=== PATIENT | male | born 1945 | race Caucasian/White ===

== ENCOUNTER 2016-07-26 11:43 | Emergency (ER) | payer BC, MEDICARE ==
[~2016-07-26] VITALS: Ht 170.2 cm; Wt 70.3 kg
[~2016-07-26 11:43] MED LIST: /MELO7TA PO; /PRAV20TA PO; ASPI81TA85 PO; CLOP75TA2 PO; DICY20TA PO; LISI5TAB PO; OMEP20CA3 PO; TIMO25OPD OU; ULTR100T PO; VITA500C24 PO; VITA500T53 PO; WHEYPOW3 PO; XALA0.002 OU; [UNRECOGNIZED DRUG - CODE] PO; [UNRECOGNIZED DRUG - OTHER] PO
[2016-07-26] MEDS ORDERED: FLOM5CAP PO (12:01)
[2016-07-26] MEDS ORDERED: AMPH20CA PO (12:01)
[2016-07-26] MEDS ORDERED: AMLO5TAB2 PO (12:01)
[2016-07-26] MEDS ORDERED: LIDOCAINE 1% MDV 20ML VIAL IM ONE (13:30)
[2016-07-26] MEDS ORDERED: CLIN1CAP5 PO (14:00)
[2016-07-26 14:03] VITALS: BP 125/69
== END 2016-07-26 14:12 | disposition home or self-care (01) ==
LOC: M ED 13:28
DX: L02.214 Cutaneous abscess of groin (principal); F17.210 Nicotine dependence, cigarettes, uncomplicated; Z88.2 Allergy status to sulfonamides; Z79.899 Other long term (current) drug therapy

== ENCOUNTER → 2016-07-27 | Outpatient (REF) | payer MEDICARE ==
[~2016-07-27] MED LIST changes: +AMLO5TAB2 PO; +AMPH20CA PO; +CLIN1CAP5 PO; +FLOM5CAP PO
[2016-07-28 11:50] LABS: MEAN CORPUSCULAR HEMOGLOBIN 34.3 pg (27.0-33.0); MEAN CORPUSCULAR HGB CONC 33.3 g/dl (32.0-36.5); MEAN CORPUSCULAR VOLUME 102.9 fl (80.0-96.0); PLATELET COUNT, AUTOMATED 225 k/mm3 (150-450); RED CELL DISTRIBUTION WIDTH 12.6 % (11.5-14.5); WHITE BLOOD COUNT 5.3 K/mm3 (4.0-10.0)
[2016-07-28 12:13] LABS: FOLATE > 24.0 NG/ML (>5.4); VITAMIN B12 LEVEL 317 PG/ML (247-911)
[2016-07-28 12:23] LABS: EOSINOPHILS 1 % (0-5)
[2016-07-28 12:32] LABS: THYROXINE (T4) 6.3 UG/DL (4.5-12.0)
== END ==
LOC: M SFHCCLAY 13:54
PROVIDERS: ATTEND Family Medicine
DX: D64.9 Anemia, unspecified (principal); Z13.29 Encounter for screening for other suspected endocrine disorder; L02.214 Cutaneous abscess of groin; Z79.82 Long term (current) use of aspirin; Z79.899 Other long term (current) drug therapy
CPT/HCPCS: 82607; 82746; 83540; 84436; 84443; 85025; G0463

== ENCOUNTER 2016-10-08 09:43 | Inpatient (IN) | payer MEDICARE ==
[~2016-10-08] VITALS: Ht 170.2 cm; Wt 62.9 kg
[~2016-10-08 09:43] MED LIST changes: +CLIN150C14 PO; -CLIN1CAP5 PO
[2016-10-08] MEDS ORDERED: ZOSTINJ SC (10:25)
[2016-10-08] MEDS ORDERED: BACL10TA2 PO (10:25)
[2016-10-08] MEDS ORDERED: DICY20TA11 PO (10:25)
[2016-10-08] MEDS ORDERED: IBUP-1114 PO (10:25)
[2016-10-08] MEDS ORDERED: TRAM1CAP15 PO (10:25)
[2016-10-08] MEDS ORDERED: ALPH0.156 OU (10:25)
[2016-10-08] MEDS ORDERED: VITA100072 PO (10:25)
[2016-10-08] MEDS ORDERED: ACETAMINOPHEN TAB 650MG DOSE (2X325MG) PO ONE (11:00)
[2016-10-08 11:08] LABS: BASO % 0.2 % (0.0-1.0); EOS % 0.1 % (0.0-3.0); LARGE UNSTAINED CELL # 0.1 K/mm3 (0.0-0.4); LARGE UNSTAINED CELL % 0.3 % (0.0-4.0); LYMPH # 0.6 K/mm3 (1.5-4.5); LYMPH % 3.5 % (24.0-44.0); MEAN CORPUSCULAR HEMOGLOBIN 34.6 pg (27.0-33.0); MEAN CORPUSCULAR HGB CONC 33.7 g/dl (32.0-36.5); MEAN CORPUSCULAR VOLUME 102.7 fl (80.0-96.0); MONO # 0.6 K/mm3 (0.0-0.8); MONO % 3.7 % (0.0-5.0); NEUTROPHILS # 14.7 K/mm3 (1.8-7.7); NEUTROPHILS % 92.3 % (36.0-66.0); PLATELET COUNT, AUTOMATED 197 k/mm3 (150-450); RED CELL DISTRIBUTION WIDTH 12.8 % (11.5-14.5); WHITE BLOOD COUNT 15.9 K/mm3 (4.0-10.0)
[2016-10-08] MEDS: NS 1,000 ML IV SCH ×2 (11:11→21:29)
[2016-10-08 11:22] LABS: ALBUMIN 3.7 GM/DL (3.2-5.2); ALKALINE PHOSPHATASE 129 U/L (45-117); ALT/SGPT 31 U/L (12-78); ANION GAP 9 MEQ/L (8-16); AST/SGOT 35 U/L (15-37); BILIRUBIN,DIRECT < 0.1 MG/DL (0.0-0.2); BILIRUBIN,TOTAL 0.5 MG/DL (0.2-1.0); BLOOD UREA NITROGEN 41 MG/DL (7-18); CALCIUM LEVEL 8.4 MG/DL (8.8-10.2); CARBON DIOXIDE LEVEL 18 MEQ/L (21-32); CHLORIDE LEVEL 114 MEQ/L (98-107); CREATININE FOR GFR 1.76 MG/DL (0.70-1.30); GLOMERULAR FILTRATION RATE 40.7 (>42); GLUCOSE, FASTING 127 MG/DL (83-110); POTASSIUM SERUM 4.4 MEQ/L (3.5-5.1); SODIUM LEVEL 141 MEQ/L (136-145); TOTAL PROTEIN 7.8 GM/DL (6.4-8.2)
--- NOTE | 2016-10-08 11:37 | REP ---
Clinical: Altered mental status. Comparison: 03/14/2013 . Findings: Age-related atrophy, periventricular leukomalacia and microvascular ischemic changes are appreciated. The ventricles and sulci are symmetric. Chang-white differentiation is maintained. There is no evidence for acute intracranial hemorrhage, mass/mass effect, pathology or infarction. No extra-axial fluid collection. Calvarium is intact. Paranasal sinuses and mastoid air cells are clear. Impression: Age related atrophy and microvascular ischemic changes. No acute intracranial hemorrhage, infarction, or mass/mass effect. Signed by Jamaal Ruth MD 10/08/2016 11:27 A
--- NOTE | 2016-10-08 11:39 | REP ---
Clinical: Altered mental status . Comparison: 03/14/2013 . Findings: The mediastinum and cardiac silhouette are stable and within normal limits for portable technique. The lung presley are clear without acute consolidation, effusion, or pneumothorax. Skeletal structures are intact. Impression: No acute cardiopulmonary process appreciated. Signed by Jamaal Ruth MD 10/08/2016 11:31 A
--- NOTE | 2016-10-08 12:05 | REP ---
Clinical: Flank pain. Pyelonephritis. Findings: Lung bases demonstrate minimal chronic changes. Liver, spleen, pancreas, and bilateral adrenal glands are essentially normal for noncontrast examination. Splenic calcifications consistent with prior granulomatous disease. Evidence of prior hysterectomy. Kidneys demonstrate mild nonspecific perinephric stranding without hydroureteronephrosis, intrarenal or obstructing ureteral calculi. The enteric system is without obstruction or acute inflammatory process and a normal terminal ileum and appendix are identified in the right lower quadrant. Pelvis demonstrates mild bladder wall thickening which may be secondary to underlying outlet obstruction with large prostate gland measuring 5.2 cm maximal diameter. No ascites. No obvious adenopathy. No free air. Atherosclerotic changes of the aorta and vasculature noted without aneurysm. Musculoskeletal structures demonstrate degenerative changes and evidence for prior lumbar laminectomy. Impression: 1. Mild symmetric perinephric stranding is nonspecific. Urinary tract system is otherwise unremarkable by noncontrast evaluation and should be correlated with urinalysis. 2. Mild bladder wall thickening may be secondary to outlet obstruction with enlarged prostate gland possibly warranting urology correlation. 3. No free fluid. No adenopathy. No obvious further acute abdominopelvic pathology appreciated. Signed by Jamaal Ruth MD 10/08/2016 11:57 A
[2016-10-08] MEDS ORDERED: cefTRIAXone SOD 1 GM in D5W MINI-BAG PLUS 50 ML IV ONE (12:30)
[2016-10-08] MEDS ORDERED: OMEP20CA3 PO (13:43)
[2016-10-08] MEDS ORDERED: IBUP1TAB7 PO (13:43)
[2016-10-08] MEDS ORDERED: LISI30TA4 PO (13:43)
[2016-10-08] MEDS ORDERED: ASPI1TAB PO (13:45)
[2016-10-08] MEDS ORDERED: BISACODYL 5 MG TAB PO PRN (15:15)
[2016-10-08] MEDS ORDERED: IPRATROPIUM 0.5MG/ALBUTEROL 2.5MG INH SOL UD 3ML (DUONEB)(J7620) NEB PRN (15:15)
[2016-10-08] MEDS ORDERED: DEXTROSE 50% 50 ML SYRINGE IV PRN (15:15)
[2016-10-08] MEDS ORDERED: LATA5OPD OU (16:40)
[2016-10-08] MEDS: PERCOCET 5MG/325MG TAB PO PRN ×2 (16:59→23:18)
[2016-10-08 17:00] VITALS: BP 158/73
[2016-10-08] MEDS: HumaLOG INSULIN (NovoLOG) PER UNIT SC SCH (17:02)
[2016-10-08] MEDS: IPRATROPIUM 0.5MG/ALBUTEROL 2.5MG INH SOL UD 3ML (DUONEB)(J7620) NEB SCH (20:17)
[2016-10-08] MEDS ORDERED: HumaLOG INSULIN (NovoLOG) PER UNIT SC SCH (21:00)
[2016-10-08] MEDS: BACLOFEN 10 MG TAB PO SCH (21:43)
[2016-10-08 22:00] VITALS: BP 119/67
[2016-10-08] MEDS: BRIMONIDINE 0.15% OPHTH SOLN 5 ML OU SCH (22:27)
[2016-10-08] MEDS: LATANOPROST 0.005% OPHTH SOLN 2.5 ML OU SCH (22:27)
--- NOTE | 2016-10-08 22:48 | HPE ---
DATE OF ADMISSION: 10/08/2016 PRIMARY CARE DOCTOR: Dr. Vazquez Brambila CHIEF COMPLAINT: Generalized weakness. HISTORY OF THE PRESENT ILLNESS: The patient is a 70-year-old male with past medical history of cerebrovascular accident with resultant remnant right-sided weakness, presenting with generalized weakness. He was brought in by his , who was concerned about his degenerating health over the past few days. He is eating less, he says, and unable to be weighed, fell on and was unable to pull self back up like he used to in the past. He also has been wetting his underwear twice, which is unlike . The urine is malodorous. The reports that he is very tremulous and unsteady on his feet if he attempts to even stand, holding onto a rail. The patient denies any fever, chills, cough, shortness of breath, nausea, vomiting, diarrhea, chest pain. REVIEW OF SYSTEMS: Ten-point systems assessed are negative except listed above in the history of the present illness. PAST MEDICAL HISTORY: Also includes chronic back pain secondary to spinal stenosis, cervical and lumbar region, also hypertension, glaucoma, BPH. PAST SURGICAL HISTORY: Extensive list. FAMILY HISTORY: Dad in his 50s from cancer and mother in her 70s from chronic obstructive pulmonary disease (COPD) and carcinoma (CA). SOCIAL HISTORY: The patient is a smoker, smokes half a pack a day, has been smoking for 60 years. Alcohol seldomly. Denies illicit drug use. He is and lives with his . He has two children. He is retired. He worked for [employer] industry. ALLERGIES TO MEDICATIONS: SULFA DRUGS. MEDICATIONS: His list of home medications includes: - lisinopril 30 mg once a day - ibuprofen 800 mg three times a day - dicyclomine 20 mg four times a day - amphetamine/dextroamphetamine 20 mg in the morning - amlodipine 5 mg once a day - aspirin 81 mg once daily - baclofen 10 mg three times a day - brimonidine tartrate 0.15% to both eyes twice a day - vitamin B12 1000 mcg once daily - latanoprost 50 drops - one drop to both eyes at night - omeprazole 20 mg once a day - tamsulosin 0.4 mg once daily Vital Signs: Blood pressure 95976, pulse 84, respiratory rate 18, oxygen saturation 100% on room air, temperature 99.5 degrees Fahrenheit. General: He is awake, alert, oriented to person, place, time, does not talk much but when he does, is coherent. Appears comfortable, in no distress. HEENT: Pupils equal, round and reactive to light. Normocephalic, atraumatic. Mucous membranes dry. Cardiovascular System: S1, S2 present. Rate is regular. No audible murmur. Respiratory System: Positive air entry bilaterally. Gastrointestinal: Abdomen is soft, nontender, nondistended. Normal bowel sounds. No guarding, no rebound. Rectal Exam: Deferred. Musculoskeletal System: No edema, cyanosis or calf tenderness. Pulses are normal in all extremities. Skin: Warm and dry, acyanotic without rash, bruise, petechiae. Neurology: Right-sided weakness and poor gait. LABORATORY: Hematology: White blood cell count of 16, hemoglobin 11, hematocrit 33, MCV 103, platelets 197. Chemistry: Sodium 141, potassium 4.1, chloride 114, bicarbonate 18, anion gap 9, BUN 41, creatinine 1.76, fasting glucose 127, lactic acid 1.0, calcium 8.4. Liver function tests (LFTs) are within normal limits. Troponin I less than 0.02. Total protein 7.8, albumin 3.7, TSH 1.3. Urine color is yellow, blood is +3, protein +1, nitrate positive, leukocyte esterase positive, WBC 92, red blood cells 55, bacteria +1. IMAGING STUDIES: CT scan of the head revealed age-related atrophy and microvascular ischemic changes. No acute intracranial hemorrhage, infarct, mass effect. Chest x-ray: No acute cardiopulmonary disease. CT scan of the abdomen and pelvis: Mild symmetric perinephric stranding. Urinary tract system is otherwise unremarkable. Mild bladder wall thickening, which may be secondary to outlet obstruction with enlarged prostate. No fluid collection. ASSESSMENT: A 70-year-old man who presented with progressive generalized weakness, poor appetite, low-grade fever, urinary incontinence, elevated in creatinine and infected urine. IMPRESSION: Includes: 1. Generalized weakness. 2. Urinary tract infection/pyelonephritis. 3. Dehydration. 4. Acute kidney injury. 5. History of hypertension. Blood pressure controlled. 6. History of BPH. 7. History of glaucoma. PLAN: The patient is admitted to medical-surgical floor, continued on antibiotic Rocephin and hydration with fluids, saline at 100 mL an hour. Resume home medications except lisinopril secondary to elevation in creatinine levels. Please followup on culture results, electrolytes and creatinine in the morning. Physical therapy ordered evaluation and treatment. Deep vein thrombosis (DVT) prophylaxis with subcutaneous Lovenox.
[2016-10-09 01:00] VITALS: BP 154/72
[2016-10-09] MEDS ORDERED: MORPHINE 2 MG/ML 1ML SYRINGE IV ONE ×2 (01:00→01:15)
[2016-10-09] MEDS: IPRATROPIUM 0.5MG/ALBUTEROL 2.5MG INH SOL UD 3ML (DUONEB)(J7620) NEB SCH ×4 (01:49→19:48)
[2016-10-09] MEDS: NS 1,000 ML IV SCH ×2 (05:37→23:07)
[2016-10-09 06:00] VITALS: BP 153/73
[2016-10-09 06:23] LABS: INR 1.32; MEAN CORPUSCULAR HEMOGLOBIN 35.8 pg (27.0-33.0); MEAN CORPUSCULAR HGB CONC 34.5 g/dl (32.0-36.5); MEAN CORPUSCULAR VOLUME 103.9 fl (80.0-96.0); RED CELL DISTRIBUTION WIDTH 13.1 % (11.5-14.5); WHITE BLOOD COUNT 13.1 K/mm3 (4.0-10.0)
[2016-10-09 07:29] LABS: ALBUMIN 3.1 GM/DL (3.2-5.2); ALBUMIN/GLOBULIN RATIO 0.76 (1.00-1.93); BILIRUBIN,TOTAL 0.3 MG/DL (0.2-1.0); CALCIUM LEVEL 8.4 MG/DL (8.8-10.2); CREATININE FOR GFR 1.65 MG/DL (0.70-1.30); GLOMERULAR FILTRATION RATE 43.9 (>42); POTASSIUM SERUM 4.6 MEQ/L (3.5-5.1); TOTAL PROTEIN 7.2 GM/DL (6.4-8.2)
--- NOTE | 2016-10-09 07:30 | ECGEPIP ---
Stationary ECG Study [facility] - ED Test Date: 2016-10-08 Pat Name: MURTAZA KELSEY Department: Room: - Gender: M [employer]: lr : 1945 Requested By: Dimitri Motley Order Number: [id number] Reading MD: Angie Navas Measurements Intervals [place] Rate: 101 P: 45 VA: 154 QRS: 28 QRSD: 75 T: 31 QT: 303 QTc: 393 Interpretive Statements SINUS TACHYCARDIA ABNORMAL RHYTHM ECG INCREASED RATE 03/14/13 Electronically Signed On 10-09-2016 7:29:56 EDT by Angie Navas
[2016-10-09] MEDS: CYANOCOBALAMIN 500 MCG TAB PO SCH (08:05)
[2016-10-09] MEDS: PERCOCET 5MG/325MG TAB PO PRN ×2 (08:05→13:47)
[2016-10-09] MEDS: amLODIPine 5 MG TAB PO SCH (08:06)
[2016-10-09] MEDS: BACLOFEN 10 MG TAB PO SCH ×3 (08:06→20:05)
[2016-10-09] MEDS: ENOXAPARIN 30 MG/0.3 ML SYR (J1650) SC SCH (08:06)
[2016-10-09] MEDS: TAMSULOSIN 0.4 MG CAP PO SCH (08:06)
[2016-10-09] MEDS: ASPIRIN 81 MG ENTERIC TAB PO SCH (08:06)
[2016-10-09] MEDS: OMEPRAZOLE 20 MG CAP PO SCH (08:06)
[2016-10-09] MEDS: BRIMONIDINE 0.15% OPHTH SOLN 5 ML OU SCH ×2 (08:07→20:06)
[2016-10-09] MEDS: HumaLOG INSULIN (NovoLOG) PER UNIT SC SCH ×2 (08:07→12:26)
[2016-10-09] MEDS ORDERED: CEFTRIAXONE SOD IV SCH (09:00)
[2016-10-09] MEDS ORDERED: FLUID PLACE HOLDER IV SCH (09:00)
[2016-10-09] MEDS: cefTRIAXone SOD 2 GM in D5W MINI-BAG PLUS 50 ML IV SCH (12:25)
--- NOTE | 2016-10-09 13:43 | IPNPDOC ---
Date Seen The patient was seen on 10/09/16. Progress Note SUBJECTIVE: Patient tells me that he is feeling better this morning and that the pain on his right flank is improving. He tells me that he knows he is here because of his back pain, however he does not know the year. That remember accurately the president he does know the city. He otherwise denies any other complaints OBJECTIVE PHYSICAL EXAMINATION: VITAL SIGNS: Please see below. GENERAL: Frail elderly man laying in bed he appears mildly uncomfortable secondary to back pain but he is in no distress HEENT: Pupils equally round, patient refuses to participate in cranial nerve testing he has very dry mucous membranes CARDIOVASCULAR: S1-S2 he is not tachycardic. RESPIRATORY: Clear to auscultation. ABDOMINAL: Right CVA tenderness, bowel sounds present abdomen soft nontender EXTREMITIES: No Clubbing cyanosis or edema LABORATORY DATA: Please see below. MICROBIOLOGY: Please see below. IMAGING: CT abdomen and pelvis:1. Mild symmetric perinephric stranding is nonspecific. Urinary tract system is otherwise unremarkable by noncontrast evaluation and should be correlated with urinalysis. 2. Mild bladder wall thickening may be secondary to outlet obstruction with enlarged prostate gland possibly warranting urology correlation. 3. No free fluid. No adenopathy. No obvious further acute abdominopelvic pathology appreciated. Chest x-ray:No acute cardiopulmonary process appreciated. CT head:Age related atrophy and microvascular ischemic changes. No acute intracranial hemorrhage, infarction, or mass/mass effect. DVT prophylaxis ordered?: Lovenox ASSESSMENT AND PLAN: This is a 70-year-old male with pyelonephritis. PROBLEMS: 1. sepsis secondary to pyelonephritis: Patient presents with acute delirium right flank pain and abnormal UA and fever highly suggestive of pyelonephritis, he is on empiric ceftriaxone he reports that he is feeling improved today we'll continue to monitor him closely she is continued on IV hydration follow-up microbiology. Pain control 2. Back pain: And flank pain related to his pyelonephritis however after further discussions with the patient's today and has been confused for several days and did have a fall as such to exclude any other pathology we'll check plain films of his lumbosacral spine. 3. Hypertension: Continue with Norvasc. 4. Glaucoma: Continue with Xalatan and Alphagan 5. Gastroesophageal reflux disease: Continue with omeprazole 6. Vitamin B12 deficiency: Continue with supplementation DISPOSITION: We'll continue to monitor this patient closely. VS, I&O, 24H, Konrad Vital Signs/I&O Vital Signs Date Time Temp Pulse Resp B/P (MAP) Pulse Ox O2 Delivery O2 Flow Rate FiO2 10/09/16 09:57 99.8 10/09/16 09:20 Room Air 10/09/16 08:40 18 10/09/16 08:06 79 141/82 10/09/16 06:00 97 10/08/16 16:13 99 I&O- Last 24 Hours up to 6 AM 10/09/16 06:00 Intake Total 170 ml Output Total 525 ml Balance -355 ml Laboratory Data 24H LABS Laboratory Tests 2 10/08/16 17:02: Bedside Glucose (Misc Panel) 106 10/08/16 17:18: Bedside Glucose (Misc Panel) 119H 10/08/16 20:39: Bedside Glucose (Misc Panel) 165H 10/09/16 05:59: Prothrombin Time 16.5H, Prothromb Time International Ratio 1.32, Anion Gap 8, Glomerular Filtration Rate 43.9, Blood Urea Nitrogen 35H, Creatinine 1.65H, Sodium Level 144, Potassium Level 4.6, Chloride Level 117H, Carbon Dioxide Level 19L, Calcium Level 8.4L, Aspartate Amino Transf (AST/SGOT) 24, Alanine Aminotransferase (ALT/SGPT) 36, Alkaline Phosphatase 120H, Total Bilirubin 0.3, Total Protein 7.2, Albumin 3.1L, Albumin/Globulin Ratio 0.76L 10/09/16 11:29: Bedside Glucose (Misc Panel) 173H CBC/BMP Laboratory Tests 10/09/16 05:59 Red Blood Count 2.94 L, Mean Corpuscular Volume 103.9 H, Mean Corpuscular Hemoglobin 35.8 H, Mean Corpuscular Hemoglobin Concent 34.5, Red Cell Distribution Width 13.1, Calcium Level 8.4 L, Aspartate Amino Transf (AST/SGOT) 24, Alanine Aminotransferase (ALT/SGPT) 36, Alkaline Phosphatase 120 H, Total Bilirubin 0.3, Total Protein 7.2, Albumin 3.1 L Microbiology Microbiology 10/08/16 Blood Culture - Preliminary, Resulted No growth after 24 hours . All specim... 10/08/16 Blood Culture - Preliminary, Resulted No growth after 24 hours . All specim... 10/08/16 Urine Culture, Received Pending KHADRA JACKSON MD Oct 09, 2016 13:43
[2016-10-09 14:00] VITALS: BP 154/85
--- NOTE | 2016-10-09 15:51 | REP ---
Clinical: Back pain. Technique: AP, lateral, bilateral oblique and coned-down views. Comparison: 10/14/2004. Findings: The patient is status post laminectomy and posterior fusion at the L4-L5 level. Moderate to advanced multilevel degenerative changes noted throughout the remainder of the lumbosacral spine including osteophytosis, endplate sclerosis and disc space narrowing. No acute fracture / compression injury or subluxation. Impression: 1. Status post laminectomy and posterior fusion at the L4-L5 levels. 2. Advanced multilevel degenerative changes without acute fracture / compression injury or subluxation. Signed by Jamaal Ruth MD 10/09/2016 03:43 P
[2016-10-09] MEDS: LATANOPROST 0.005% OPHTH SOLN 2.5 ML OU SCH (20:05)
[2016-10-09] MEDS: ACETAMINOPHEN TAB 650MG DOSE (2X325MG) PO PRN (20:13)
[2016-10-09 22:00] VITALS: BP 141/76
[2016-10-10] MEDS: IPRATROPIUM 0.5MG/ALBUTEROL 2.5MG INH SOL UD 3ML (DUONEB)(J7620) NEB SCH ×4 (01:01→19:34)
[2016-10-10] MEDS: ACETAMINOPHEN TAB 650MG DOSE (2X325MG) PO PRN (05:27)
[2016-10-10 06:00] VITALS: BP 140/70
[2016-10-10 06:21] LABS: MEAN CORPUSCULAR HEMOGLOBIN 34.3 pg (27.0-33.0); MEAN CORPUSCULAR HGB CONC 33.9 g/dl (32.0-36.5); MEAN CORPUSCULAR VOLUME 101.3 fl (80.0-96.0); RED CELL DISTRIBUTION WIDTH 13.2 % (11.5-14.5); WHITE BLOOD COUNT 7.4 K/mm3 (4.0-10.0)
[2016-10-10 06:34] LABS: INR 1.13
[2016-10-10 06:45] LABS: ALBUMIN 2.7 GM/DL (3.2-5.2); ALBUMIN/GLOBULIN RATIO 0.71 (1.00-1.93); BILIRUBIN,TOTAL 0.2 MG/DL (0.2-1.0); CALCIUM LEVEL 7.8 MG/DL (8.8-10.2); CREATININE FOR GFR 1.28 MG/DL (0.70-1.30); GLOMERULAR FILTRATION RATE 58.8 (>42); POTASSIUM SERUM 3.9 MEQ/L (3.5-5.1); TOTAL PROTEIN 6.5 GM/DL (6.4-8.2)
[2016-10-10 08:45] VITALS: BP 140/78
[2016-10-10] MEDS ORDERED: PREVNAR 13 VACCINE SYRINGE (CPT CODE:90670) IM ONE (09:00)
[2016-10-10] MEDS: BACLOFEN 10 MG TAB PO SCH ×3 (09:24→21:18)
[2016-10-10] MEDS: OMEPRAZOLE 20 MG CAP PO SCH (09:24)
[2016-10-10] MEDS: TAMSULOSIN 0.4 MG CAP PO SCH (09:24)
[2016-10-10] MEDS: CYANOCOBALAMIN 500 MCG TAB PO SCH (09:25)
[2016-10-10] MEDS: ASPIRIN 81 MG ENTERIC TAB PO SCH (09:25)
[2016-10-10] MEDS: amLODIPine 5 MG TAB PO SCH (09:25)
[2016-10-10] MEDS: ENOXAPARIN 30 MG/0.3 ML SYR (J1650) SC SCH (09:26)
[2016-10-10] MEDS: BRIMONIDINE 0.15% OPHTH SOLN 5 ML OU SCH ×2 (09:28→21:19)
[2016-10-10] MEDS: NS 1,000 ML IV SCH ×2 (10:04→21:19)
--- NOTE | 2016-10-10 11:22 | IPNPDOC ---
Date Seen The patient was seen on 10/10/16. Progress Note SUBJECTIVE: Patient tells me that he is feeling well and has no complaints. Today he is oriented to person, place (city & hospital) but not year situation why he is here. He is able to identify the president. OBJECTIVE PHYSICAL EXAMINATION: VITAL SIGNS: Please see below. GENERAL: Frail elderly man laying in bed he appears mildly uncomfortable secondary to back pain but he is in no distress HEENT: Rt eye previously surgically shut due to frequent infections, patient refuses to participate in cranial nerve testing he has very dry mucous membranes CARDIOVASCULAR: S1-S2 he is not tachycardic. RESPIRATORY: Clear to auscultation. ABDOMINAL: Right CVA tenderness decreased today, bowel sounds present abdomen soft nontender EXTREMITIES: No Clubbing cyanosis or edema LABORATORY DATA: Please see below. MICROBIOLOGY: Please see below. IMAGING: CT abdomen and pelvis:1. Mild symmetric perinephric stranding is nonspecific. Urinary tract system is otherwise unremarkable by noncontrast evaluation and should be correlated with urinalysis. 2. Mild bladder wall thickening may be secondary to outlet obstruction with enlarged prostate gland possibly warranting urology correlation. 3. No free fluid. No adenopathy. No obvious further acute abdominopelvic pathology appreciated. Chest x-ray:No acute cardiopulmonary process appreciated. CT head:Age related atrophy and microvascular ischemic changes. No acute intracranial hemorrhage, infarction, or mass/mass effect. Lumbar PLain films: 1. Status post laminectomy and posterior fusion at the L4- L5 levels. 2. Advanced multilevel degenerative changes without acute fracture / compression injury or subluxation. MRI L.S. Spine: results pending DVT prophylaxis ordered?: Lovenox ASSESSMENT AND PLAN: This is a 70-year-old male with pyelonephritis. PROBLEMS: 1. sepsis secondary to pyelonephritis: Patient presents with acute delirium right flank pain and abnormal UA and fever highly suggestive of pyelonephritis, he is on ceftriaxone for E Coli he reports that he is feeling improved today. His pain is decreaSed, his mentation is improved. we'll continue to monitor him closely, he is continued on Pain control 2. Back pain: And flank pain related to his pyelonephritis however after further discussions with the patient's today and has been confused for several days and did have a fall as such we did do plain films of his lumbosacral spine. MRI results are currently pending 3. Hypertension: Continue with Norvasc. 4. Glaucoma: Continue with Xalatan and Alphagan 5. Gastroesophageal reflux disease: Continue with omeprazole 6. Vitamin B12 deficiency: Continue with supplementation DISPOSITION: We'll continue to monitor this patient closely he does appear to be improving quite well at this time. VS, I&O, 24H, Fishbone Vital Signs/I&O Vital Signs Date Time Temp Pulse Resp B/P (MAP) Pulse Ox O2 Delivery O2 Flow Rate FiO2 10/10/16 09:25 70 140/78 10/10/16 08:45 97.5 24 95 Room Air 10/08/16 16:13 99 I&O- Last 24 Hours up to 6 AM 10/10/16 06:00 Intake Total 1890 ml Output Total 700 ml Balance 1190 ml Laboratory Data 24H LABS Laboratory Tests 2 10/09/16 11:29: Bedside Glucose (Misc Panel) 173H 10/10/16 06:08: Prothrombin Time 14.7H, Prothromb Time International Ratio 1.13, Anion Gap 8, Glomerular Filtration Rate 58.8, Blood Urea Nitrogen 26H, Creatinine 1.28, Sodium Level 140, Potassium Level 3.9, Chloride Level 114H, Carbon Dioxide Level 18L, Calcium Level 7.8L, Aspartate Amino Transf (AST/SGOT) 20, Alanine Aminotransferase (ALT/SGPT) 27, Alkaline Phosphatase 101, Total Bilirubin 0.2, Total Protein 6.5, Albumin 2.7L, Albumin/Globulin Ratio 0.71L CBC/BMP Laboratory Tests 10/10/16 06:08 Red Blood Count 2.79 L, Mean Corpuscular Volume 101.3 H, Mean Corpuscular Hemoglobin 34.3 H, Mean Corpuscular Hemoglobin Concent 33.9, Red Cell Distribution Width 13.2, Calcium Level 7.8 L, Aspartate Amino Transf (AST/SGOT) 20, Alanine Aminotransferase (ALT/SGPT) 27, Alkaline Phosphatase 101, Total Bilirubin 0.2, Total Protein 6.5, Albumin 2.7 L Microbiology Microbiology 10/08/16 Blood Culture - Preliminary, Resulted No growth after 24 hours . All specim... 10/08/16 Blood Culture - Preliminary, Resulted No growth after 24 hours . All specim... 10/08/16 Urine Culture - Final, Complete Escherichia Coli KHADRA JACKSON MD Oct 10, 2016 11:22
[2016-10-10] MEDS: cefTRIAXone SOD 2 GM in D5W MINI-BAG PLUS 50 ML IV SCH (13:14)
[2016-10-10 13:58] VITALS: BP 140/76
[2016-10-10] MEDS ORDERED: ADDE20CA3 PO (14:22)
[2016-10-10] MEDS: PERCOCET 5MG/325MG TAB PO PRN ×2 (14:50→21:18)
[2016-10-10] MEDS: LATANOPROST 0.005% OPHTH SOLN 2.5 ML OU SCH (21:19)
[2016-10-10 22:00] VITALS: BP 155/82
[2016-10-11] MEDS: IPRATROPIUM 0.5MG/ALBUTEROL 2.5MG INH SOL UD 3ML (DUONEB)(J7620) NEB SCH ×4 (01:25→19:18)
[2016-10-11 05:47] LABS: MEAN CORPUSCULAR HEMOGLOBIN 34.6 pg (27.0-33.0); MEAN CORPUSCULAR HGB CONC 34.5 g/dl (32.0-36.5); MEAN CORPUSCULAR VOLUME 100.4 fl (80.0-96.0); WHITE BLOOD COUNT 8.7 K/mm3 (4.0-10.0)
[2016-10-11 05:51] LABS: INR 1.07
[2016-10-11 06:00] VITALS: BP 144/78
[2016-10-11 06:00] LABS: ALBUMIN 2.8 GM/DL (3.2-5.2); ALBUMIN/GLOBULIN RATIO 0.72 (1.00-1.93); BILIRUBIN,TOTAL 0.2 MG/DL (0.2-1.0); CALCIUM LEVEL 7.8 MG/DL (8.8-10.2); CREATININE FOR GFR 1.36 MG/DL (0.70-1.30); GLOMERULAR FILTRATION RATE 54.8 (>42); POTASSIUM SERUM 4.3 MEQ/L (3.5-5.1); TOTAL PROTEIN 6.7 GM/DL (6.4-8.2)
[2016-10-11] MEDS: CYANOCOBALAMIN 500 MCG TAB PO SCH (10:10)
[2016-10-11] MEDS: TAMSULOSIN 0.4 MG CAP PO SCH (10:11)
[2016-10-11] MEDS: ASPIRIN 81 MG ENTERIC TAB PO SCH (10:11)
[2016-10-11] MEDS: OMEPRAZOLE 20 MG CAP PO SCH (10:11)
[2016-10-11] MEDS: BACLOFEN 10 MG TAB PO SCH ×3 (10:11→20:23)
[2016-10-11] MEDS: amLODIPine 5 MG TAB PO SCH (10:13)
[2016-10-11] MEDS: NS 1,000 ML IV SCH (10:13)
[2016-10-11] MEDS: ENOXAPARIN 30 MG/0.3 ML SYR (J1650) SC SCH (10:13)
[2016-10-11] MEDS: BRIMONIDINE 0.15% OPHTH SOLN 5 ML OU SCH ×2 (10:14→20:23)
[2016-10-11] MEDS: [UNRECOGNIZED DRUG - OTHER] PO SCH (11:58)
[2016-10-11] MEDS: cefTRIAXone SOD 2 GM in D5W MINI-BAG PLUS 50 ML IV SCH (11:58)
[2016-10-11 14:00] VITALS: BP 138/75
--- NOTE | 2016-10-11 14:07 | IPNPDOC ---
Date Seen The patient was seen on 10/11/16. Progress Note SUBJECTIVE: Patient tells me that he is feeling well, he is oriented to person , place year and situation this morning OBJECTIVE PHYSICAL EXAMINATION: VITAL SIGNS: Please see below. GENERAL: Frail elderly man laying in bed he appears comfortable, he is coming by his HEENT: Rt eye previously surgically shut due to frequent infections, cranial nerves appear to be grossly intact CARDIOVASCULAR: S1-S2 he is not tachycardic. RESPIRATORY: Clear to auscultation. ABDOMINAL: No Right CVA tenderness today, bowel sounds present abdomen soft nontender EXTREMITIES: No Clubbing cyanosis or edema LABORATORY DATA: Please see below. MICROBIOLOGY: Please see below. IMAGING: CT abdomen and pelvis:1. Mild symmetric perinephric stranding is nonspecific. Urinary tract system is otherwise unremarkable by noncontrast evaluation and should be correlated with urinalysis. 2. Mild bladder wall thickening may be secondary to outlet obstruction with enlarged prostate gland possibly warranting urology correlation. 3. No free fluid. No adenopathy. No obvious further acute abdominopelvic pathology appreciated. Chest x-ray:No acute cardiopulmonary process appreciated. CT head:Age related atrophy and microvascular ischemic changes. No acute intracranial hemorrhage, infarction, or mass/mass effect. Lumbar PLain films: 1. Status post laminectomy and posterior fusion at the L4- L5 levels. 2. Advanced multilevel degenerative changes without acute fracture / compression injury or subluxation. MRI L.S. Spine: results pending DVT prophylaxis ordered?: Lovenox ASSESSMENT AND PLAN: This is a 70-year-old male with pyelonephritis. PROBLEMS: 1. sepsis secondary to pyelonephritis: Patient presents with acute delirium right flank pain and abnormal UA and fever highly suggestive of pyelonephritis, he is on ceftriaxone for E Coli and he continues to improve every day. His pain is decreaed, his mentation is improved. we'll continue to monitor him closely, he is continued on Pain control. He did work with physical therapy yesterday who deemed him not safe for discharge home he needs to be old to climb 20 steps before discharge 2. Back pain: And flank pain related to his pyelonephritis however after further discussions with the patient's today and has been confused for several days and did have a fall as such we did do plain films of his lumbosacral spine. MRI results are currently pending 3. Hypertension: Continue with Norvasc. 4. Glaucoma: Continue with Xalatan and Alphagan 5. Gastroesophageal reflux disease: Continue with omeprazole 6. 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 VS, I&O, 24H, Fishbone Vital Signs/I&O Vital Signs Date Time Temp Pulse Resp B/P (MAP) Pulse Ox O2 Delivery O2 Flow Rate FiO2 10/11/16 10:13 88 142/80 10/11/16 09:00 Room Air 10/11/16 06:00 99.3 20 96 10/08/16 16:13 99 I&O- Last 24 Hours up to 6 AM 10/11/16 05:59 Intake Total 2230 ml Output Total 270 ml Balance 1960 ml Laboratory Data 24H LABS Laboratory Tests 2 10/11/16 05:21: Anion Gap 7L, Glomerular Filtration Rate 54.8, Blood Urea Nitrogen 23H, Creatinine 1.36H, Sodium Level 139, Potassium Level 4.3, Chloride Level 108H, Carbon Dioxide Level 24, Calcium Level 7.8L, Aspartate Amino Transf (AST/SGOT) 17, Alanine Aminotransferase (ALT/SGPT) 26, Alkaline Phosphatase 92, Total Bilirubin 0.2, Total Protein 6.7, Albumin 2.8L, Albumin/Globulin Ratio 0.72L 10/11/16 05:28: Prothrombin Time 14.0, Prothromb Time International Ratio 1.07 CBC/BMP Laboratory Tests 10/11/16 05:21 Red Blood Count 2.91 L, Mean Corpuscular Volume 100.4 H, Mean Corpuscular Hemoglobin 34.6 H, Mean Corpuscular Hemoglobin Concent 34.5, Red Cell Distribution Width 13.0, Calcium Level 7.8 L, Aspartate Amino Transf (AST/SGOT) 17, Alanine Aminotransferase (ALT/SGPT) 26, Alkaline Phosphatase 92, Total Bilirubin 0.2, Total Protein 6.7, Albumin 2.8 L Microbiology Microbiology 10/08/16 Blood Culture - Preliminary, Resulted No Growth after 72 hours. All specime... 10/08/16 Blood Culture - Preliminary, Resulted No Growth after 72 hours. All specime... 10/08/16 Urine Culture - Final, Complete Escherichia Coli KHADRA JACKSON MD Oct 11, 2016 14:07
[2016-10-11] MEDS: LATANOPROST 0.005% OPHTH SOLN 2.5 ML OU SCH (20:23)
[2016-10-11] MEDS: PERCOCET 5MG/325MG TAB PO PRN (20:24)
[2016-10-11 22:00] VITALS: BP 137/84
[2016-10-12] MEDS: IPRATROPIUM 0.5MG/ALBUTEROL 2.5MG INH SOL UD 3ML (DUONEB)(J7620) NEB SCH ×5 (01:06→20:56)
[2016-10-12 06:00] VITALS: BP 148/70
[2016-10-12 06:07] LABS: MEAN CORPUSCULAR HEMOGLOBIN 34.4 pg (27.0-33.0); MEAN CORPUSCULAR HGB CONC 34.4 g/dl (32.0-36.5); RED CELL DISTRIBUTION WIDTH 13.1 % (11.5-14.5); WHITE BLOOD COUNT 8.5 K/mm3 (4.0-10.0)
[2016-10-12 06:13] LABS: INR 1.11
[2016-10-12 06:31] LABS: ALBUMIN 2.5 GM/DL (3.2-5.2); ALBUMIN/GLOBULIN RATIO 0.66 (1.00-1.93); ALKALINE PHOSPHATASE 89 U/L (45-117); ALT/SGPT 47 U/L (12-78); ANION GAP 8 MEQ/L (8-16); AST/SGOT 47 U/L (15-37); BILIRUBIN,TOTAL 0.3 MG/DL (0.2-1.0); BLOOD UREA NITROGEN 20 MG/DL (7-18); CALCIUM LEVEL 7.6 MG/DL (8.8-10.2); CARBON DIOXIDE LEVEL 21 MEQ/L (21-32); CHLORIDE LEVEL 111 MEQ/L (98-107); CREATININE FOR GFR 1.19 MG/DL (0.70-1.30); GLOMERULAR FILTRATION RATE > 60.0 (>42); GLUCOSE, FASTING 115 MG/DL (83-110); POTASSIUM SERUM 3.5 MEQ/L (3.5-5.1); SODIUM LEVEL 140 MEQ/L (136-145); TOTAL PROTEIN 6.3 GM/DL (6.4-8.2)
[2016-10-12] MEDS: NS 1,000 ML IV SCH ×2 (08:30→20:29)
[2016-10-12] MEDS: [UNRECOGNIZED DRUG - OTHER] PO SCH (08:30)
[2016-10-12] MEDS ORDERED: POTASSIUM CHLORIDE 10 MEQ SR TABLET PO ONE (09:00)
[2016-10-12] MEDS: ASPIRIN 81 MG ENTERIC TAB PO SCH (09:22)
[2016-10-12] MEDS: amLODIPine 5 MG TAB PO SCH (09:22)
[2016-10-12] MEDS: TAMSULOSIN 0.4 MG CAP PO SCH (09:22)
[2016-10-12] MEDS: OMEPRAZOLE 20 MG CAP PO SCH (09:23)
[2016-10-12] MEDS: BACLOFEN 10 MG TAB PO SCH ×3 (09:23→20:29)
[2016-10-12] MEDS: CYANOCOBALAMIN 500 MCG TAB PO SCH (09:23)
[2016-10-12] MEDS: ENOXAPARIN 30 MG/0.3 ML SYR (J1650) SC SCH (09:24)
[2016-10-12] MEDS: BRIMONIDINE 0.15% OPHTH SOLN 5 ML OU SCH ×2 (09:24→20:29)
--- NOTE | 2016-10-12 09:28 | REPUSA ---
CLINICAL HISTORY: Right upper extremity edema Real-time ultrasound images of the deep venous system with Doppler evaluation. Normal compression, spontaneity and augmentation. Normal color Doppler. No intraluminal thrombus is seen. IMPRESSION: No evidence of deep venous thrombosis.
[2016-10-12 10:00] VITALS: BP 137/76
[2016-10-12] MEDS: cefTRIAXone SOD 2 GM in D5W MINI-BAG PLUS 50 ML IV SCH (11:53)
--- NOTE | 2016-10-12 13:00 | IPNPDOC ---
Date Seen The patient was seen on 10/12/16. Progress Note SUBJECTIVE: Patient tells me that he is feeling well, he denies any pain in his Rt arm. He says his back pain or stable, not any better or worse than previous days. OBJECTIVE PHYSICAL EXAMINATION: VITAL SIGNS: Please see below. GENERAL: Frail elderly man laying in bed he appears comfortable, he is AAOx3 HEENT: Rt eye previously surgically shut due to frequent infections, cranial nerves appear to be grossly intact CARDIOVASCULAR: S1-S2 he is not tachycardic. RESPIRATORY: Clear to auscultation. ABDOMINAL: No Right CVA tenderness today, bowel sounds present abdomen soft nontender EXTREMITIES: No Clubbing cyanosis or edema. His Rt bicep is mildly reddened, but he has been leaning on it. He is repositioned and examined several hours later with very little redness and no tenderness to palpation. LABORATORY DATA: Please see below. MICROBIOLOGY: Please see below. IMAGING: CT abdomen and pelvis:1. Mild symmetric perinephric stranding is nonspecific. Urinary tract system is otherwise unremarkable by noncontrast evaluation and should be correlated with urinalysis. 2. Mild bladder wall thickening may be secondary to outlet obstruction with enlarged prostate gland possibly warranting urology correlation. 3. No free fluid. No adenopathy. No obvious further acute abdominopelvic pathology appreciated. Chest x-ray:No acute cardiopulmonary process appreciated. CT head:Age related atrophy and microvascular ischemic changes. No acute intracranial hemorrhage, infarction, or mass/mass effect. Lumbar PLain films: 1. Status post laminectomy and posterior fusion at the L4- L5 levels. 2. Advanced multilevel degenerative changes without acute fracture / compression injury or subluxation. MRI L.S. Spine: results pending Duplex: No evidence of deep venous thrombosis DVT prophylaxis ordered?: Lovenox ASSESSMENT AND PLAN: This is a 70-year-old male with pyelonephritis. PROBLEMS: 1. sepsis secondary to pyelonephritis: Patient presented with acute delirium right flank pain and abnormal UA and fever highly suggestive of pyelonephritis, he is on ceftriaxone for E Coli and he continues to improve every day. His pain is decreased, his mentation is improved. we'll continue to monitor him closely, he is continued on Pain control. He did work with physical therapy yesterday who deemed him not safe for discharge home he needs to be old to climb 20 steps before discharge 2. Back pain: And flank pain related to his pyelonephritis however after further discussions with the patient's today and has been confused for several days and did have a fall as such we did do plain films of his lumbosacral spine. MRI results are currently pending 72 hours after the study was completed I did call radiology the have assured me it will be read today 3. Hypertension: Continue with Norvasc. 4. Glaucoma: Continue with Xalatan and Alphagan 5. Gastroesophageal reflux disease: Continue with omeprazole 6. Vitamin B12 deficiency: Continue with supplementation 7. Narcolepsy will restart his home amphetamine brought in by his 8. Right arm redness likely related to his gout acting as a tourniquet versus chronically leaning on his right arm and appears to be resolving with simple repositioning for now we'll just continue to monitor no evidence of DVT on ultrasound 9. Metabolic encephalopathy: Resolving with treatment for UTI as outlined above DISPOSITION: We'll continue to monitor this patient closely he does appear to be improving quite well at this time he needs to be able to climb 20 steps prior to disposition home. VS, I&O, 24H, [facility] Vital Signs/I&O Vital Signs Date Time Temp Pulse Resp B/P (MAP) Pulse Ox O2 Delivery O2 Flow Rate FiO2 10/12/16 10:00 Room Air 10/12/16 10:00 96.9 69 18 137/76 (96) 97 10/08/16 16:13 99 I&O- Last 24 Hours up to 6 AM 10/12/16 06:00 Intake Total 2505 ml Balance 2505 ml Laboratory Data 24H LABS Laboratory Tests 2 10/12/16 05:31: Prothrombin Time 14.5, Prothromb Time International Ratio 1.11, Anion Gap 8, Glomerular Filtration Rate > 60.0, Blood Urea Nitrogen 20H, Creatinine 1.19, Sodium Level 140, Potassium Level 3.5, Chloride Level 111H, Carbon Dioxide Level 21, Calcium Level 7.6L, Aspartate Amino Transf (AST/SGOT) 47H, Alanine Aminotransferase (ALT/SGPT) 47, Alkaline Phosphatase 89, Total Bilirubin 0.3, Total Protein 6.3L, Albumin 2.5L, Albumin/Globulin Ratio 0.66L CBC/BMP Laboratory Tests 10/12/16 05:31 Red Blood Count 2.88 L, Mean Corpuscular Volume 100.0 H, Mean Corpuscular Hemoglobin 34.4 H, Mean Corpuscular Hemoglobin Concent 34.4, Red Cell Distribution Width 13.1, Calcium Level 7.6 L, Aspartate Amino Transf (AST/SGOT) 47 H, Alanine Aminotransferase (ALT/SGPT) 47, Alkaline Phosphatase 89, Total Bilirubin 0.3, Total Protein 6.3 L, Albumin 2.5 L Microbiology Microbiology 10/08/16 Blood Culture - Preliminary, Resulted No Growth after 72 hours. All specime... 10/08/16 Blood Culture - Preliminary, Resulted No Growth after 72 hours. All specime... 10/08/16 Urine Culture - Final, Complete Escherichia Coli KHADRA JACKSON MD Oct 12, 2016 13:00
[2016-10-12 13:56] VITALS: BP 142/68
[2016-10-12] MEDS: LATANOPROST 0.005% OPHTH SOLN 2.5 ML OU SCH (20:29)
[2016-10-12 22:00] VITALS: BP 144/70
[2016-10-13] MEDS: IPRATROPIUM 0.5MG/ALBUTEROL 2.5MG INH SOL UD 3ML (DUONEB)(J7620) NEB SCH ×4 (01:12→19:32)
[2016-10-13 05:52] LABS: MEAN CORPUSCULAR HEMOGLOBIN 34.4 pg (27.0-33.0); MEAN CORPUSCULAR HGB CONC 33.9 g/dl (32.0-36.5); MEAN CORPUSCULAR VOLUME 101.4 fl (80.0-96.0); RED CELL DISTRIBUTION WIDTH 13.2 % (11.5-14.5); WHITE BLOOD COUNT 7.7 K/mm3 (4.0-10.0)
[2016-10-13 05:58] LABS: INR 1.11
[2016-10-13 06:00] VITALS: BP 146/72
[2016-10-13 06:22] LABS: ALBUMIN 2.6 GM/DL (3.2-5.2); ALBUMIN/GLOBULIN RATIO 0.65 (1.00-1.93); ALKALINE PHOSPHATASE 92 U/L (45-117); ALT/SGPT 99 U/L (12-78); ANION GAP 9 MEQ/L (8-16); AST/SGOT 87 U/L (15-37); BILIRUBIN,TOTAL 0.3 MG/DL (0.2-1.0); BLOOD UREA NITROGEN 18 MG/DL (7-18); CALCIUM LEVEL 8.2 MG/DL (8.8-10.2); CARBON DIOXIDE LEVEL 23 MEQ/L (21-32); CHLORIDE LEVEL 109 MEQ/L (98-107); CREATININE FOR GFR 1.15 MG/DL (0.70-1.30); GLOMERULAR FILTRATION RATE > 60.0 (>42); GLUCOSE, FASTING 115 MG/DL (83-110); POTASSIUM SERUM 3.5 MEQ/L (3.5-5.1); SODIUM LEVEL 141 MEQ/L (136-145); TOTAL PROTEIN 6.6 GM/DL (6.4-8.2)
[2016-10-13] MEDS: ENOXAPARIN 30 MG/0.3 ML SYR (J1650) SC SCH (09:56)
[2016-10-13] MEDS: BACLOFEN 10 MG TAB PO SCH ×3 (09:57→21:31)
[2016-10-13] MEDS: CYANOCOBALAMIN 500 MCG TAB PO SCH (09:57)
[2016-10-13] MEDS: CEFDINIR 300 MG CAP (OMNICEF) PO SCH ×2 (09:57→21:31)
[2016-10-13] MEDS: OMEPRAZOLE 20 MG CAP PO SCH (09:57)
[2016-10-13] MEDS: TAMSULOSIN 0.4 MG CAP PO SCH (09:57)
[2016-10-13] MEDS: ASPIRIN 81 MG ENTERIC TAB PO SCH (09:57)
[2016-10-13] MEDS: [UNRECOGNIZED DRUG - OTHER] PO SCH (09:57)
[2016-10-13] MEDS: BRIMONIDINE 0.15% OPHTH SOLN 5 ML OU SCH ×2 (09:59→21:31)
[2016-10-13] MEDS: amLODIPine 5 MG TAB PO SCH (09:59)
--- NOTE | 2016-10-13 13:23 | IPNPDOC ---
Date Seen The patient was seen on 10/13/16. Progress Note SUBJECTIVE: Patient tells me that he is feeling well, he denies any pain in his Rt arm. He says his back pain is "fine" today OBJECTIVE PHYSICAL EXAMINATION: VITAL SIGNS: Please see below. GENERAL: Frail elderly man laying in bed he appears comfortable, watching TV and eating breakfast, he is AAOx3 HEENT: Rt eye previously surgically shut due to frequent infections, cranial nerves appear to be grossly intact CARDIOVASCULAR: S1-S2 he is not tachycardic. RESPIRATORY: Clear to auscultation. ABDOMINAL: No Right CVA tenderness today, bowel sounds present abdomen soft nontender EXTREMITIES: No Clubbing cyanosis or edema. His Rt bicep is no longer erythematous. No tenderness to palpation LABORATORY DATA: Please see below. MICROBIOLOGY: Please see below. IMAGING: CT abdomen and pelvis:1. Mild symmetric perinephric stranding is nonspecific. Urinary tract system is otherwise unremarkable by noncontrast evaluation and should be correlated with urinalysis. 2. Mild bladder wall thickening may be secondary to outlet obstruction with enlarged prostate gland possibly warranting urology correlation. 3. No free fluid. No adenopathy. No obvious further acute abdominopelvic pathology appreciated. Chest x-ray:No acute cardiopulmonary process appreciated. CT head:Age related atrophy and microvascular ischemic changes. No acute intracranial hemorrhage, infarction, or mass/mass effect. Lumbar PLain films: 1. Status post laminectomy and posterior fusion at the L4- L5 levels. 2. Advanced multilevel degenerative changes without acute fracture / compression injury or subluxation. MRI L.S. Spine: No acute fractures and pulmonary report Duplex: No evidence of deep venous thrombosis DVT prophylaxis ordered?: Lovenox ASSESSMENT AND PLAN: This is a 70-year-old male with pyelonephritis. PROBLEMS: 1. sepsis secondary to pyelonephritis: Patient presented with acute delirium right flank pain and abnormal UA and fever highly suggestive of pyelonephritis, he is on ceftriaxone for E Coli and he continues to improve every day. At this time I'll transition him to by mouth Omnicef 300 mg twice a day for 10 days to complete a 14 day course. His pain is decreased, his mentation is improved. we' ll continue to monitor him closely. 2. Back pain: And flank pain related to his pyelonephritis, no acute findings on imaging. 3. Hypertension: Continue with Norvasc. 4. Glaucoma: Continue with Xalatan and Alphagan 5. Gastroesophageal reflux disease: Continue with omeprazole 6. Vitamin B12 deficiency: Continue with supplementation 7. Narcolepsy will restart his home amphetamine brought in by his 8. Metabolic encephalopathy: Resolving with treatment for UTI as outlined above DISPOSITION: PT pending home versus subacute rehabilitation depending on the patient's ability to complete significant stairs VS, I&O, 24H, [facility] Vital Signs/I&O Vital Signs Date Time Temp Pulse Resp B/P (MAP) Pulse Ox O2 Delivery O2 Flow Rate FiO2 10/13/16 09:59 78 138/68 10/13/16 09:00 Room Air 10/13/16 06:00 98.2 17 97 10/08/16 16:13 99 I&O- Last 24 Hours up to 6 AM 10/13/16 05:59 Intake Total 1910 ml Output Total 720 ml Balance 1190 ml Laboratory Data 24H LABS Laboratory Tests 2 10/13/16 05:39: Prothrombin Time 14.5, Prothromb Time International Ratio 1.11, Anion Gap 9, Glomerular Filtration Rate > 60.0, Blood Urea Nitrogen 18, Creatinine 1.15, Sodium Level 141, Potassium Level 3.5, Chloride Level 109H, Carbon Dioxide Level 23, Calcium Level 8.2L, Aspartate Amino Transf (AST/SGOT) 87H, Alanine Aminotransferase (ALT/SGPT) 99H, Alkaline Phosphatase 92, Total Bilirubin 0.3, Total Protein 6.6, Albumin 2.6L, Albumin/Globulin Ratio 0.65L CBC/BMP Laboratory Tests 10/13/16 05:39 Red Blood Count 2.77 L, Mean Corpuscular Volume 101.4 H, Mean Corpuscular Hemoglobin 34.4 H, Mean Corpuscular Hemoglobin Concent 33.9, Red Cell Distribution Width 13.2, Calcium Level 8.2 L, Aspartate Amino Transf (AST/SGOT) 87 H, Alanine Aminotransferase (ALT/SGPT) 99 H, Alkaline Phosphatase 92, Total Bilirubin 0.3, Total Protein 6.6, Albumin 2.6 L Microbiology Microbiology 10/08/16 Blood Culture - Final, Complete NO GROWTH AFTER 5 DAYS 10/08/16 Blood Culture - Final, Complete NO GROWTH AFTER 5 DAYS 10/08/16 Urine Culture - Final, Complete Escherichia Coli KHADRA JACKSON MD Oct 13, 2016 13:23
[2016-10-13 14:00] VITALS: BP 134/72
[2016-10-13] MEDS: LATANOPROST 0.005% OPHTH SOLN 2.5 ML OU SCH (21:31)
[2016-10-13 22:00] VITALS: BP 154/98
[2016-10-14] MEDS: IPRATROPIUM 0.5MG/ALBUTEROL 2.5MG INH SOL UD 3ML (DUONEB)(J7620) NEB SCH ×2 (01:08→07:23)
[2016-10-14 06:00] VITALS: BP 132/74
[2016-10-14 06:29] LABS: MEAN CORPUSCULAR HGB CONC 33.7 g/dl (32.0-36.5); RED CELL DISTRIBUTION WIDTH 13.3 % (11.5-14.5); WHITE BLOOD COUNT 7.1 K/mm3 (4.0-10.0)
[2016-10-14 06:35] LABS: INR 1.1
[2016-10-14 06:53] LABS: ALBUMIN 2.7 GM/DL (3.2-5.2); ALBUMIN/GLOBULIN RATIO 0.69 (1.00-1.93); BILIRUBIN,TOTAL 0.3 MG/DL (0.2-1.0); CALCIUM LEVEL 8.4 MG/DL (8.8-10.2); CREATININE FOR GFR 1.28 MG/DL (0.70-1.30); GLOMERULAR FILTRATION RATE 58.8 (>42); POTASSIUM SERUM 4.2 MEQ/L (3.5-5.1); TOTAL PROTEIN 6.6 GM/DL (6.4-8.2)
[2016-10-14] MEDS: TAMSULOSIN 0.4 MG CAP PO SCH (09:47)
[2016-10-14] MEDS: [UNRECOGNIZED DRUG - OTHER] PO SCH (09:47)
[2016-10-14] MEDS: OMEPRAZOLE 20 MG CAP PO SCH (09:47)
[2016-10-14] MEDS: ENOXAPARIN 30 MG/0.3 ML SYR (J1650) SC SCH (09:47)
[2016-10-14] MEDS: ASPIRIN 81 MG ENTERIC TAB PO SCH (09:47)
[2016-10-14] MEDS: CEFDINIR 300 MG CAP (OMNICEF) PO SCH (09:47)
[2016-10-14 09:48] VITALS: BP 138/72
[2016-10-14] MEDS: amLODIPine 5 MG TAB PO SCH (09:48)
[2016-10-14] MEDS: BACLOFEN 10 MG TAB PO SCH (09:49)
[2016-10-14] MEDS: BRIMONIDINE 0.15% OPHTH SOLN 5 ML OU SCH (09:49)
[2016-10-14] MEDS: CYANOCOBALAMIN 500 MCG TAB PO SCH (09:49)
[2016-10-14] MEDS ORDERED: CEFD300CAP PO (12:22)
--- NOTE | 2016-10-14 12:40 | IPNPDOC ---
Date Seen The patient was seen on 10/14/16. Progress Note SUBJECTIVE: Patient tells me that he is feeling well, he denies any pain in his Rt arm. He says his back pain is "fine" today, Says he is walking much better, wants to go home , no fever or chills, no chest pain or sob , no leg swelling no abdominal pain nausea or vomiting. OBJECTIVE PHYSICAL EXAMINATION: VITAL SIGNS: Please see below. GENERAL: Frail elderly man laying in bed he appears comfortable, watching TV and eating breakfast, he is AAOx3 HEENT: Rt eye previously surgically shut due to frequent infections, cranial nerves appear to be grossly intact CARDIOVASCULAR: S1-S2 he is not tachycardic. RESPIRATORY: Clear to auscultation. ABDOMINAL: No Right CVA tenderness today, bowel sounds present abdomen soft nontender EXTREMITIES: No Clubbing cyanosis or edema. His Rt bicep is no longer erythematous. No tenderness to palpation LABORATORY DATA: Please see below. MICROBIOLOGY: Please see below. IMAGING: CT abdomen and pelvis:1. Mild symmetric perinephric stranding is nonspecific. Urinary tract system is otherwise unremarkable by noncontrast evaluation and should be correlated with urinalysis. 2. Mild bladder wall thickening may be secondary to outlet obstruction with enlarged prostate gland possibly warranting urology correlation. 3. No free fluid. No adenopathy. No obvious further acute abdominopelvic pathology appreciated. Chest x-ray:No acute cardiopulmonary process appreciated. CT head:Age related atrophy and microvascular ischemic changes. No acute intracranial hemorrhage, infarction, or mass/mass effect. Lumbar PLain films: 1. Status post laminectomy and posterior fusion at the L4- L5 levels. 2. Advanced multilevel degenerative changes without acute fracture / compression injury or subluxation. MRI L.S. Spine: No acute fractures and pulmonary report Duplex: No evidence of deep venous thrombosis DVT prophylaxis ordered?: Lovenox ASSESSMENT AND PLAN: This is a 70-year-old male with pyelonephritis. PROBLEMS: 1. Sepsis secondary to pyelonephritis: Patient presented with acute delirium right flank pain and abnormal UA and fever highly suggestive of pyelonephritis, he is on ceftriaxone for E Coli and he continues to improve every day. At this time I'll transition him to by mouth Omnicef 300 mg twice a day for 10 days to complete a 14 day course. His pain is decreased, his mentation is improved. we' ll continue to monitor him closely. 2. Back pain: And flank pain related to his pyelonephritis, no acute findings on imaging. Resolved. 3. Hypertension: Continue with Norvasc. lisinopril stopped for KI now bp controlled with amlodipine so not restarted. 4. Glaucoma: Continue with Xalatan and Alphagan 5. Gastroesophageal reflux disease: Continue with omeprazole 6. Vitamin B12 deficiency: Continue with supplementation 7. Narcolepsy will restart his home amphetamine brought in by his 8. Metabolic encephalopathy: Due to sepsis . Resolving with treatment for UTI as outlined above 9.Transaminitis: had CT abdomen pelvis was negative for acute gall bladder or liver issues , no abdominal pain could be related to ceftriaxone. will need to follow up as outpatient. 10. BPH with history of urinary retention now resolved. will continue with flomax. DISPOSITION: PT pending home versus subacute rehabilitation depending on the patient's ability to complete significant stairs VS, I&O, 24H, [facility] Vital Signs/I&O Vital Signs Date Time Temp Pulse Resp B/P (MAP) Pulse Ox O2 Delivery O2 Flow Rate FiO2 10/14/16 09:48 68 138/72 10/14/16 06:00 97.3 18 95 Room Air 10/08/16 16:13 99 I&O- Last 24 Hours up to 6 AM 10/14/16 06:00 Intake Total 1430 ml Output Total 1575 ml Balance -145 ml Laboratory Data 24H LABS Laboratory Tests 2 10/14/16 05:49: Prothrombin Time 14.4, Prothromb Time International Ratio 1.10, Anion Gap 8, Glomerular Filtration Rate 58.8, Blood Urea Nitrogen 19H, Creatinine 1.28, Sodium Level 141, Potassium Level 4.2, Chloride Level 107, Carbon Dioxide Level 26, Calcium Level 8.4L, Aspartate Amino Transf (AST/SGOT) 158H, Alanine Aminotransferase (ALT/SGPT) 193H, Alkaline Phosphatase 88, Total Bilirubin 0.3, Total Protein 6.6, Albumin 2.7L, Albumin/Globulin Ratio 0.69L CBC/BMP Laboratory Tests 10/14/16 05:49 Red Blood Count 2.81 L, Mean Corpuscular Volume 101.0 H, Mean Corpuscular Hemoglobin 34.0 H, Mean Corpuscular Hemoglobin Concent 33.7, Red Cell Distribution Width 13.3, Calcium Level 8.4 L, Aspartate Amino Transf (AST/SGOT) 158 H, Alanine Aminotransferase (ALT/SGPT) 193 H, Alkaline Phosphatase 88, Total Bilirubin 0.3, Total Protein 6.6, Albumin 2.7 L Microbiology Microbiology 10/08/16 Blood Culture - Final, Complete NO GROWTH AFTER 5 DAYS 10/08/16 Blood Culture - Final, Complete NO GROWTH AFTER 5 DAYS 10/08/16 Urine Culture - Final, Complete Escherichia Coli JANENE RIVERA MD Oct 14, 2016 12:40
[2016-10-14 14:00] VITALS: BP 140/72
--- NOTE | 2016-10-16 13:14 | REP ---
MR LUMBAR SPINE WITHOUT CONTRAST: HISTORY: Back pain. COMPARISON: 10/02/2011 The examination is available for review at 12:25 p.m. this date. Decreased signal intensity on T2-weighted images is present in the T11-12 through L3-4 and L5-S1 intervertebral discs. The discs are decreased in height. These findings are consistent with disc degeneration. Disc bulges are present at the T11-12 and T12-L1 levels. There is minimal effacement of the thecal sac without spinal cord compression. A diffuse disc bulge is present at the L1-2 level. There is minimal compression of the thecal sac. There is hypertrophy of the posterior articulating facets. The L1 nerves exit the neural foramina without compression. A diffuse disc bulge is present at the L2-3 level. There is minimal compression of the thecal sac. There is hypertrophy of the posterior articulating facets. There is compression of the L2 nerves in the neural foramina. A diffuse disc bulge with associated osteophyte formation is present at the L3-4 level. There is hypertrophy of the ligamenta flava and posterior articulating facets. These findings produce moderate central canal stenosis. There is compression of the L3 nerves in the neural foramina. A laminectomy defect is present. The patient is status post L4-5 anterior and posterior spinal fusion and L4 to S1 laminectomy. Bone graft material is present anteriorly and metal rods and pedicle screws posteriorly. There is no disc bulge or herniation at this level. There is compression of the L4 nerves in the neural foramina. A diffuse disc bulge with associated osteophyte formation is present at the L5-S1 level. This abuts the thecal sac. There is hypertrophy of the posterior articulating facets. There is compression of the L5 nerves in the neural foramina. The conus medullaris is normal in appearance terminating at the level of the L1-2 intervertebral disc. A hemangioma is present in the L1 vertebral body. Increased signal intensity on T2-weighted images is present in the endplates of the L3 through S1 vertebral bodies. This represents degenerative change. IMPRESSION: 1. Diffuse disc bulges at the L1-2 and L2-3 levels with minimal thecal sac compression. There is compression of the L2 nerves in the neural foramina. 2. Moderate central canal stenosis at the L3-4 level secondary to disc bulge, ligamentous and facet hypertrophy and osteophyte formation. There is compression of the L3 nerves in the neural foramina. A laminectomy defect is present. The laminectomy defect is a new finding. 3. The patient is status post L4-5 anterior and posterior spinal fusion and L4 to S1 laminectomy. There is anatomic alignment of the lumbar spine. There is compression of the L4 nerves in the neural foramina. 4. Diffuse disc bulge with associated osteophyte formation at the L5-S1 level. This abuts the thecal sac. There is compression of the L5 nerves in the neural foramina. Fractures cannot be excluded. There is no other significant change. Signed by Lambert Green MD 10/16/2016 01:25 P
--- NOTE | 2016-10-16 21:39 | DSES ---
DATE OF ADMISSION: 10/08/2016 DATE OF DISCHARGE: 10/14/2016 PRIMARY CARE PROVIDER: Dr. Vazquez Brambila DISCHARGE DIAGNOSES: Sepsis secondary to pyelonephritis. Metabolic encephalopathy due to sepsis. Benign prostatic hypertrophy (BPH) with urinary retention, now resolved. Hypertension. Glaucoma. Gastroesophageal reflux disease (GERD). Vitamin B12 deficiency. Narcolepsy. History of cerebrovascular accident with residual right-sided paralysis. Spinal cord stenosis. Sleep apnea with CPAP. Hyperlipidemia. Osteoarthritis. Back surgery, cervical fusion, lumbar laminectomy with chronic back pain. Transaminitis, possibly related to antibiotics. DISCHARGE MEDICATIONS: - Cefdinir 300 mg by mouth twice a day - amlodipine 5 mg - amphetamine/dextroamphetamine 20 mg by mouth once a day - aspirin 81 mg by mouth daily - baclofen 10 mg by mouth three times a day - brimonidine eye drop, 1 drop both eyes twice a day - cyanocobalamin 1000 mcg by mouth daily - dicyclomine 20 mg by mouth four times a day - ibuprofen 800 mg by mouth three times a day as needed - latanoprost 1 drop both eyes at bedtime - omeprazole 20 mg by mouth daily - tamsulosin 0.4 mg by mouth daily HOSPITAL COURSE: This is a 70-year-old male who presented to the hospital with worsening generalized weakness, difficulty with standing up and walking and a fall a few days back prior to admission. Unable to pull self up from sitting to standing. Urinary incontinence with malodorous urine. The patient also had low grade fever and poor appetite. The patient was found to have urinary tract infection with Escherichia coli (E. Coli) and acute kidney injury. The patient had CT scan of the abdomen and pelvis done which showed perinephric stranding and enlarged prostate with mild bladder wall thickening secondary to outlet obstruction. The patient was diagnosed with pyelonephritis and started on IV antibiotics. The patient responded well to treatment. The patient's renal function is improved and came back to baseline. Initially, the patient was confused and was diagnosed with metabolic encephalopathy due to sepsis. With treatment of infection, the patient's mental status also came down to baseline. The patient was evaluated by physical therapy in the hospital and received several physical therapy throughout his stay with improvement in his generalized weakness and functional status. The patient lisinopril was discontinued as initially patient had acute kidney injury and subsequently the patient's blood pressure remained well controlled in the hospital without lisinopril. On the day of discharge, the patient was stable without any complaints. Vitals were within normal limits. He was functionally at his baseline or close to his baseline, so he was discharged home. During the end of the hospitalization the patient was also noted to have slowly rising transaminase, which was felt to be related to antibiotics. The patient was on ceftriaxone which was discontinued and patient was changed to oral cefdinir. The patient should have a followup liver function test with primary care for whether to further evaluate for this. PHYSICAL EXAMINATION: Vital Signs: Temperature 97.6, pulse 71, respiratory rate 16, blood pressure 140/72, pulse oximetry 99% on room air. General: Patient awake, alert, oriented times three. Sitting up in chair, in no acute distress. HEENT: Normocephalic, atraumatic. Moist mucous membranes. Anicteric eyes. Right eye is surgically shut due to frequent infections. Cardiovascular: S1, S2, regular. No rub, murmur or gallop. Respiratory: Bilateral vesicular breath sounds. Abdomen: Soft, nontender, bowel sounds present. Extremities: No edema. LABORATORY DATA: WBC 7.71, hemoglobin 9.6, platelet 214. Sodium 141, potassium 4.2, chloride 107, bicarbonate 26, BUN 19, creatinine 1.28. Glucose 113, calcium 8.4, AST 150, ALT 193. Alkaline phosphatase is 88. Albumin 2.7. Total protein 6.6. DISPOSITION: The patient is discharged to home in stable condition. DISCHARGE INSTRUCTIONS: The patient to followup with primary care provider in one week. The patient should get a liver function test during followup with primary care provider. Diet as tolerated. Activity as tolerated.
== END 2016-10-14 17:57 | disposition home health service (06) | DRG 871 ==
LOC: EDBD 09:43 → M ED 09:43 → M ED INP 15:11 → M MSPAV 16:43
PROVIDERS: ADMIT Hospitalist; ATTEND Internal Medicine Nephrology
DX: A41.9 Sepsis, unspecified organism (principal); G93.41 Metabolic encephalopathy; I69.351 Hemiplegia and hemiparesis following cerebral infarction affecting right dominant side; N10 Acute pyelonephritis; N17.9 Acute kidney failure, unspecified; M48.02 Spinal stenosis, cervical region; M48.06 Spinal stenosis, lumbar region; F17.210 Nicotine dependence, cigarettes, uncomplicated; E86.0 Dehydration; R26.81 Unsteadiness on feet; E53.8 Deficiency of other specified B group vitamins; K21.9 Gastro-esophageal reflux disease without esophagitis; G47.419 Narcolepsy without cataplexy; I10 Essential (primary) hypertension; H40.9 Unspecified glaucoma; M10.00 Idiopathic gout, unspecified site; N40.1 Benign prostatic hyperplasia with lower urinary tract symptoms; R33.9 Retention of urine, unspecified; Z88.2 Allergy status to sulfonamides; Z79.4 Long term (current) use of insulin; Z79.82 Long term (current) use of aspirin; Z79.899 Other long term (current) drug therapy

== ENCOUNTER → 2016-10-19 | Outpatient (REF) | payer MEDICARE ==
[~2016-10-19] MED LIST changes: +ADDE20CA3 PO; +ALPH0.156 OU; +ASPI1TAB PO; +BACL10TA2 PO; +BACL1TAB8 PO; +BENT10CA PO; +CEFD300CAP PO; +DICY20TA11 PO; +ELID1CRE11 TOP; +IBUP-1114 PO; +IBUP1TAB7 PO; +LATA5OPD OU; +LISI30TA4 PO; +MOTR200T44 PO; +OMEP40CA2 PO; +PRAV40TA2 PO; +PRESCAP PO; +TRAM1CAP15 PO; +VITA10002 PO; +VITA100072 PO; +XALA0.007 OU; +ZOSTINJ SC
[2016-10-19 15:18] LABS: ALBUMIN 3.3 GM/DL (3.2-5.2); ALBUMIN/GLOBULIN RATIO 0.92 (1.00-1.93); BILIRUBIN,TOTAL 0.2 MG/DL (0.2-1.0); CALCIUM LEVEL 8.4 MG/DL (8.8-10.2); CREATININE FOR GFR 1.54 MG/DL (0.70-1.30); GLOMERULAR FILTRATION RATE 47.5 (>42); POTASSIUM SERUM 4.6 MEQ/L (3.5-5.1); TOTAL PROTEIN 6.9 GM/DL (6.4-8.2)
== END ==
LOC: M SHH 13:29
PROVIDERS: ATTEND Family Medicine
DX: I10 Essential (primary) hypertension (principal); D64.9 Anemia, unspecified

== ENCOUNTER 2016-11-01 12:50 | Inpatient (IN) | payer MEDICARE ==
[~2016-11-01] VITALS: Ht 167.6 cm; Wt 66.0 kg
[~2016-11-01 12:50] MED LIST changes: -BACL1TAB8 PO; -BENT10CA PO; -ELID1CRE11 TOP; -MOTR200T44 PO; -OMEP40CA2 PO; -PRAV40TA2 PO; -PRESCAP PO; -VITA10002 PO; -XALA0.007 OU
[2016-11-01] MEDS ORDERED: VITA10002 PO (13:14)
[2016-11-01] MEDS ORDERED: BACL1TAB8 PO (13:14)
[2016-11-01] MEDS ORDERED: OMEP40CA2 PO (13:14)
[2016-11-01] MEDS ORDERED: FLOM5CAP PO (13:14)
[2016-11-01] MEDS ORDERED: ELID1CRE11 TOP (13:14)
[2016-11-01] MEDS ORDERED: ASPI81TA85 PO (13:14)
[2016-11-01] MEDS ORDERED: BENT10CA PO (13:14)
[2016-11-01] MEDS ORDERED: MOTR200T44 PO (13:14)
[2016-11-01] MEDS ORDERED: AMLO5TAB2 PO (13:14)
[2016-11-01] MEDS ORDERED: ALPH0.156 OU (13:14)
[2016-11-01] MEDS ORDERED: XALA0.007 OU (13:14)
[2016-11-01] MEDS ORDERED: PRAV40TA2 PO (13:14)
[2016-11-01] MEDS ORDERED: AMPH20CA PO (13:14)
[2016-11-01 14:48] LABS: BASO % 0.5 % (0.0-1.0); EOS # 0.2 K/mm3 (0.0-0.50); EOS % 2.2 % (0.0-3.0); LARGE UNSTAINED CELL # 0.2 K/mm3 (0.0-0.4); LARGE UNSTAINED CELL % 1.8 % (0.0-4.0); LYMPH # 1.2 K/mm3 (1.5-4.5); LYMPH % 12.5 % (24.0-44.0); MEAN CORPUSCULAR HEMOGLOBIN 33.9 pg (27.0-33.0); MEAN CORPUSCULAR HGB CONC 33.3 g/dl (32.0-36.5); MEAN CORPUSCULAR VOLUME 101.8 fl (80.0-96.0); MONO # 0.6 K/mm3 (0.0-0.8); MONO % 5.8 % (0.0-5.0); NEUTROPHILS # 7.3 K/mm3 (1.8-7.7); NEUTROPHILS % 77.2 % (36.0-66.0); PLATELET COUNT, AUTOMATED 255 k/mm3 (150-450); RED CELL DISTRIBUTION WIDTH 12.9 % (11.5-14.5); WHITE BLOOD COUNT 9.4 K/mm3 (4.0-10.0)
[2016-11-01 15:13] LABS: ALBUMIN 3.7 GM/DL (3.2-5.2); ALKALINE PHOSPHATASE 121 U/L (45-117); ALT/SGPT 27 U/L (12-78); ANION GAP 7 MEQ/L (8-16); AST/SGOT 24 U/L (15-37); BILIRUBIN,DIRECT < 0.1 MG/DL (0.0-0.2); BILIRUBIN,TOTAL 0.2 MG/DL (0.2-1.0); BLOOD UREA NITROGEN 41 MG/DL (7-18); CALCIUM LEVEL 8.8 MG/DL (8.8-10.2); CARBON DIOXIDE LEVEL 24 MEQ/L (21-32); CHLORIDE LEVEL 105 MEQ/L (98-107); CREATININE FOR GFR 2.13 MG/DL (0.70-1.30); GLOMERULAR FILTRATION RATE 32.7 (>42); GLUCOSE, FASTING 107 MG/DL (83-110); POTASSIUM SERUM 4.6 MEQ/L (3.5-5.1); SODIUM LEVEL 136 MEQ/L (136-145); TOTAL PROTEIN 7.8 GM/DL (6.4-8.2)
[2016-11-01] MEDS ORDERED: NS 500 ML IV ONE (15:30)
[2016-11-01] MEDS ORDERED: NS 1,000 ML IV SCH (16:30)
[2016-11-01] MEDS ORDERED: PRESCAP PO (17:16)
[2016-11-01] MEDS ORDERED: IBUP1TAB7 PO (17:16)
[2016-11-01] MEDS ORDERED: ADDE20CA3 PO (17:16)
[2016-11-01] MEDS ORDERED: ONDANSETRON 4MG/2ML VIAL (J2405) IV PRN (17:30)
[2016-11-01] MEDS ORDERED: ACETAMINOPHEN TAB 650MG DOSE (2X325MG) PO PRN (17:30)
--- NOTE | 2016-11-01 18:02 | HPEPDOC ---
Medical History and Physical Date of Admission Nov 01, 2016 at 17:21 History and Physical PRIMARY CARE PROVIDER: [Dr. Glynn] ATTENDING: Raisa Walters MD CHIEF COMPLAINT: [AMS] HISTORY OF PRESENT ILLNESS: [this is 70 yo M with hx of CVA with right sided residual, HLD, HTN, PFO closure, recent UTI treated as outpatient, IBS, brought in by his for confusion for last few days, patient was at a restaurant and was doing repetitive movements with his fork, also has been having repetitive cleaning of anything in front of him, states that he was altered last time he had a UTI, and was treated for 10 days with oral abx, patient currently denies dysuria, has no complaints, she reports no diarrhea, no nausea vomiting, no fevers or chills, no diarrhea good appetite however he does not stay hydrated refuses to drink water. patient had workup with neurologist as outpatient his states he has not been diagnosed with anything at this time ie dementia or parkinsons ] PAST MEDICAL HISTORY: as above PAST SURGICAL HISTORY: shilpa sydni SOCIAL HISTORY: denies x3 FAMILY HISTORY: denies ALLERGIES: Please see below. REVIEW OF SYSTEMS: all 10 systems reviewed were negative except mentioned in HPI HOME MEDICATIONS: Please see below. PHYSICAL EXAMINATION: VITAL SIGNS: Vital Sign - Last 24 Hours 11/01/16 11/01/16 12:52 14:39 Temp 97.6 Pulse 70 Resp 18 B/P (MAP) 131/73 (92) Pulse Ox 98 O2 Delivery Room Air GENERAL APPEARANCE: [NAD]. HEENT: [Right eye chronically closed]. CARDIOVASCULAR: [s1 s2 no murmurs]. LUNGS: [cta]. ABDOMEN: [s,nt,nd]. MUSCULOSKELETAL: [PALMA, has right sided weakness 4/5, left hand tremor]. EXTREMITIES: [no edema]. NEUROLOGICAL: [Alert to place and person, not time]. PSYCHIATRIC: . LABORATORY DATA: See below. IMAGING: [CT head chronic atrophy] MICROBIOLOGY: Please see below. this is 70 yo M with hx of CVA with right sided residual, HLD, HTN, PFO closure , recent UTI treated as outpatient, IBS, brought in by his for confusion for last few days, 1. AMS possible due to worsening dementia, possible due to SARAI along with medication induced, will hold Dicyclomine given its anticholinergic properties. urine is negative no abx warraneted. 2. SARAI- pre renal azotemia 2/2 significant dehydration, will put on maintenance fluids, check labs in am. 3. HTN- resume home meds 4. Narcolepsy- will continue amphetamine 20mg daily per home dose DVT px. . Vital Signs Vital Signs Date Time Temp Pulse Resp B/P (MAP) Pulse Ox O2 Delivery O2 Flow Rate FiO2 11/01/16 14:39 11/01/16 12:52 97.6 70 18 98 Room Air Laboratory Data Labs 24H Laboratory Tests 2 11/01/16 14:34: White Blood Count 9.4, Red Blood Count 3.18L, Hemoglobin 10.8L, Hematocrit 32.4L , Mean Corpuscular Volume 101.8H, Mean Corpuscular Hemoglobin 33.9H, Mean Corpuscular Hemoglobin Concent 33.3, Red Cell Distribution Width 12.9, Platelet Count 255, Neutrophils (%) (Auto) 77.2H, Lymphocytes (%) (Auto) 12.5L, Monocytes (%) (Auto) 5.8H, Eosinophils (%) (Auto) 2.2, Basophils (%) (Auto) 0.5 , Neutrophils # (Auto) 7.3, Lymphocytes # (Auto) 1.2L, Monocytes # (Auto) 0.6, Eosinophils # (Auto) 0.2, Basophils # (Auto) 0.0, Large Unclassified Cells % 1.8 , Large Unclassified Cells # 0.2, Urine Appearance CLEAR, Urine Color YELLOW, Urine pH 5.0, Urine Specific [place] 1.016, Urine Protein 1+H, Urine Glucose (UA ) NEGATIVE, Urine Ketones TRACEH, Urine Urobilinogen 0.2, Urine Bilirubin NEGATIVE, Urine Leukocyte Esterase NEGATIVE, Urine Blood 1+H, Urine Nitrite NEGATIVE, Urine WBC (Auto) 2, Urine RBC (Auto) 34H, Urine Hyaline Casts (Auto) 0 , Urine Bacteria (Auto) NEGATIVE, Urine Squamous Epithelial Cells 0, Urine Mucus (Auto) SMALL, Urine Sperm (Auto) , Anion Gap 7L, Glomerular Filtration Rate 32.7L, Lactic Acid Level 0.5, Calcium Level 8.8, Aspartate Amino Transf ( AST/SGOT) 24, Alanine Aminotransferase (ALT/SGPT) 27, Alkaline Phosphatase 121H , Total Bilirubin 0.2, Direct Bilirubin < 0.1, Ammonia 17, Total Protein 7.8, Albumin 3.7, Albumin/Globulin Ratio 0.90L CBC/BMP Laboratory Tests 11/01/16 14:34 Red Blood Count 3.18 L, Mean Corpuscular Volume 101.8 H, Mean Corpuscular Hemoglobin 33.9 H, Mean Corpuscular Hemoglobin Concent 33.3, Red Cell Distribution Width 12.9, Neutrophils (%) (Auto) 77.2 H, Lymphocytes (%) (Auto) 12.5 L, Monocytes (%) (Auto) 5.8 H, Eosinophils (%) (Auto) 2.2, Basophils (%) ( Auto) 0.5, Neutrophils # (Auto) 7.3, Lymphocytes # (Auto) 1.2 L, Monocytes # ( Auto) 0.6, Eosinophils # (Auto) 0.2, Basophils # (Auto) 0.0 Microbiology Microbiology 11/01/16 Urine Culture, Received Pending Home Medications Scheduled (Preservision Areds) 1 Cap Cap, 1 CAP PO BID Amlodipine Besylate (Amlodipine Besylate) 5 Mg Tab, 5 MG PO QHS Amphetamine/Dextroamphetamine (Adderall Xr 20 mg) 1 Cap Cap, 1 CAP PO QAM Aspirin (Aspir-81) 81 Mg Tab, 81 MG PO QHS Baclofen (Baclofen) 10 Mg Tab, 10 MG PO TID Brimonidine Tartrate 0.15% (Alphagan P) 0.15 % Tamiko, 1 DROP OU BID Cyanocobalamin (Vitamin B-12) 1,000 Mcg Tab, 1,000 MCG PO DAILY Dicyclomine Hcl (Bentyl) 10 Mg Cap, 20 MG PO BID Ibuprofen (Ibuprofen) 800 Mg Tab, 800 MG PO TID Latanoprost (Xalatan) 0.005 % Tamiko, 1 DROP OU QHS Omeprazole (Omeprazole) 40 Mg Cap, 20 MG PO DAILY Pravastatin Sod (Pravastatin Sodium) 40 Mg Tab, 40 MG PO QHS Tamsulosin Hydrochloride (Flomax) 0.4 Mg Cap, 0.4 MG PO QHS Scheduled PRN Pimecrolimus (Elidel) 1 % Cre, 1 DOSE TOP for RASH APPLIES TO FACE PRN Allergies Coded Allergies: Sulfa Antibiotics (Verified Allergy, Unknown, 11/01/16) RAISA WALTERS MD Nov 01, 2016 18:02
--- NOTE | 2016-11-01 20:38 | REP ---
CT BRAIN WITHOUT CONTRAST: CT brain is performed without IV contrast. There are no prior studies for comparison. There is moderate atrophy. There is no midline shift moderate periventricular lucencies in the white matter are most consistent with chronic small vessel ischemic changes and gliosis. There is no acute hemorrhage. There is no extra-axial fluid collection. Vascular calcifications are seen in the carotid siphons. IMPRESSION: Chronic findings of aging as discussed above. No acute hemorrhage. Signed by Juan Chang MD 11/02/2016 01:05 P
[2016-11-01 20:40] VITALS: BP 166/80
[2016-11-01] MEDS: NS 1,000 ML IV SCH (20:49)
--- NOTE | 2016-11-01 20:57 | REP ---
CHEST, TWO VIEWS: Two views of the chest are performed. There is no acute infiltrate. Heart is normal in size. There is calcification of the thoracic aorta. There are degenerative changes of the spine. Metallic internal fixation is seen in the cervical spine. IMPRESSION: No acute pulmonary disease. Signed by Juan Chang MD 11/02/2016 01:06 P
[2016-11-01] MEDS: PRAVASTATIN 20 MG TAB PO SCH (21:06)
[2016-11-01] MEDS: TAMSULOSIN 0.4 MG CAP PO SCH (21:06)
[2016-11-01] MEDS: ASPIRIN 81 MG ENTERIC TAB PO SCH (21:06)
[2016-11-01] MEDS: BACLOFEN 10 MG TAB PO SCH (21:06)
[2016-11-01] MEDS: amLODIPine 5 MG TAB PO SCH (21:06)
[2016-11-01] MEDS: HEPARIN SOD (PORCINE) 5000 UNITS/ML VIAL SC SCH (21:07)
[2016-11-02] MEDS: BRIMONIDINE 0.15% OPHTH SOLN 5 ML OU SCH ×3 (01:11→21:37)
[2016-11-02] MEDS: LATANOPROST 0.005% OPHTH SOLN 2.5 ML OU SCH ×2 (01:11→21:37)
[2016-11-02] MEDS: NS 1,000 ML IV SCH ×3 (01:25→16:54)
[2016-11-02] MEDS: HEPARIN SOD (PORCINE) 5000 UNITS/ML VIAL SC SCH ×4 (05:36→21:41)
[2016-11-02 05:52] VITALS: BP 149/82
[2016-11-02 06:31] LABS: ALBUMIN 3.1 GM/DL (3.2-5.2); ALBUMIN/GLOBULIN RATIO 0.84 (1.00-1.93); BILIRUBIN,TOTAL 0.2 MG/DL (0.2-1.0); CALCIUM LEVEL 8.3 MG/DL (8.8-10.2); CREATININE FOR GFR 1.57 MG/DL (0.70-1.30); GLOMERULAR FILTRATION RATE 46.5 (>42); POTASSIUM SERUM 4.8 MEQ/L (3.5-5.1); TOTAL PROTEIN 6.8 GM/DL (6.4-8.2)
[2016-11-02] MEDS: OMEPRAZOLE 20 MG CAP PO SCH (09:15)
[2016-11-02] MEDS: ADDERALL 20 MG PO SCH (09:15)
[2016-11-02] MEDS: CYANOCOBALAMIN 500 MCG TAB PO SCH (09:16)
[2016-11-02] MEDS: BACLOFEN 10 MG TAB PO SCH ×3 (09:16→21:36)
[2016-11-02 14:00] VITALS: BP 140/72
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
[2016-11-02] MEDS: PRAVASTATIN 20 MG TAB PO SCH (21:36)
[2016-11-02] MEDS: ASPIRIN 81 MG ENTERIC TAB PO SCH (21:36)
[2016-11-02] MEDS: amLODIPine 5 MG TAB PO SCH (21:36)
[2016-11-02] MEDS: TAMSULOSIN 0.4 MG CAP PO SCH (21:36)
[2016-11-02 22:01] VITALS: BP 158/88
[2016-11-03] MEDS: NS 1,000 ML IV SCH ×2 (02:00→10:00)
[2016-11-03 05:46] LABS: MEAN CORPUSCULAR HEMOGLOBIN 35.4 pg (27.0-33.0); MEAN CORPUSCULAR HGB CONC 34.6 g/dl (32.0-36.5); MEAN CORPUSCULAR VOLUME 102.3 fl (80.0-96.0); RED CELL DISTRIBUTION WIDTH 13.4 % (11.5-14.5)
[2016-11-03] MEDS: HEPARIN SOD (PORCINE) 5000 UNITS/ML VIAL SC SCH ×3 (05:47→21:03)
[2016-11-03 06:00] VITALS: BP 135/70
[2016-11-03 06:44] LABS: ALBUMIN/GLOBULIN RATIO 0.79 (1.00-1.93); ALKALINE PHOSPHATASE 99 U/L (45-117); ALT/SGPT 21 U/L (12-78); ANION GAP 8 MEQ/L (8-16); AST/SGOT 17 U/L (15-37); BILIRUBIN,TOTAL 0.2 MG/DL (0.2-1.0); BLOOD UREA NITROGEN 20 MG/DL (7-18); CALCIUM LEVEL 8.6 MG/DL (8.8-10.2); CARBON DIOXIDE LEVEL 21 MEQ/L (21-32); CHLORIDE LEVEL 108 MEQ/L (98-107); CREATININE FOR GFR 1.16 MG/DL (0.70-1.30); GLOMERULAR FILTRATION RATE > 60.0 (>42); GLUCOSE, FASTING 90 MG/DL (83-110); MAGNESIUM LEVEL 1.7 MG/DL (1.8-2.4); POTASSIUM SERUM 4.8 MEQ/L (3.5-5.1); SODIUM LEVEL 137 MEQ/L (136-145); TOTAL PROTEIN 6.8 GM/DL (6.4-8.2)
[2016-11-03] MEDS: CYANOCOBALAMIN 500 MCG TAB PO SCH (09:24)
[2016-11-03] MEDS: ADDERALL 20 MG PO SCH (09:24)
[2016-11-03] MEDS: BACLOFEN 10 MG TAB PO SCH ×3 (09:24→21:00)
[2016-11-03] MEDS: OMEPRAZOLE 20 MG CAP PO SCH (09:24)
[2016-11-03] MEDS: BRIMONIDINE 0.15% OPHTH SOLN 5 ML OU SCH ×2 (09:24→21:00)
[2016-11-03] MEDS ORDERED: MAG SULF 1GM/100ML (MAG RUN) 1 GM in APPROPRIATE DILUENT 1 EA IV ONE (11:00)
[2016-11-03 14:00] VITALS: BP 154/88
[2016-11-03] MEDS: NICOTINE 7 MG/24 HR TRANSDERMAL TD SCH (20:59)
[2016-11-03] MEDS: TAMSULOSIN 0.4 MG CAP PO SCH (20:59)
[2016-11-03] MEDS: PRAVASTATIN 20 MG TAB PO SCH (20:59)
[2016-11-03 21:00] VITALS: BP 154/88
[2016-11-03] MEDS: ASPIRIN 81 MG ENTERIC TAB PO SCH (21:00)
[2016-11-03] MEDS: amLODIPine 5 MG TAB PO SCH (21:00)
[2016-11-03] MEDS: LATANOPROST 0.005% OPHTH SOLN 2.5 ML OU SCH (21:00)
[2016-11-03 22:00] VITALS: BP 160/85
--- NOTE | 2016-11-03 23:34 | IPN ---
DATE: 11/03/2016 The patient seen and examined at the bedside. Chart has been reviewed. The patient continues to be disoriented to time. Able to state his name and his location, but unable to state the date. VITALS: Temperature 98.2, pulse 57, respiratory rate 18, blood pressure 135/70, 98% on room air. GENERAL: Awake, alert and oriented to person, place and only disoriented to time, unable to tell the date. Right eye could not be fully opened. Normocephalic, atraumatic. HEART: S1, S2. Sinus rhythm. LUNGS: Clear to auscultation. No wheezes, rales or rhonchi. ABDOMEN: Soft, nontender, nondistended. EXTREMITIES: No pitting edema. Complete blood count (CBC) and metabolic panel has been refused. Notable for magnesium of 1.7. Urine culture 11/01 showed no growth. IMAGING STUDIES: Have been reviewed. ASSESSMENT AND PLAN: This is a 70-year-old male, history of cerebrovascular accident (CVA) with right-side residual, hyperlipidemia, hypertension, PFO closure, recent urinary tract infection (UTI) treated as an outpatient, who was brought in for confusion in the last few days. Was doing repetitive movements with his work at home. stated that he was found to have a urinary tract infection (UTI) and completed 10 days of antibiotics. The patient was found to have no growth in the urine culture. Altered mental status was felt was to be secondary to dehydration, acute kidney injury and azotemia and possibly Alzheimer's dementia. Will need outpatient referral to urology. IMPRESSION: 1. Acute kidney injury resolved due to decreased oral intake and prerenal azotemia. Renal function is back to normal. Status post IV fluids. 2. Questionable altered mental status. Possible dementia. Will need a full workup as an outpatient with neurologist. Urine culture infectious etiology is negative. 3. Hypertension. Continue Norvasc nightly. 4. Hyperlipidemia on Pravastatin 40 mg. 5. Irritable bowel syndrome, chronic. 6. History of right-sided cerebrovascular accident (CVA) evaluated by physical therapy, awaiting clearance prior to discharge home. Continue on aspirin and Pravachol for now. 7. Benign prostatic hypertrophy (BPH). Continue on Flomax. 8. Deep vein thrombosis (DVT) prophylaxis on subcutaneous heparin. 9. Hypertension. Continue on Norvasc 5 mg at bedtime (q.h.s.) 10. Reflex continue on Prilosec. 11. Vitamin B12 deficiency. Continue on vitamin B12. DISPOSITION: Awaiting clearance on physical therapy (PT) prior to discharge home. [facility]
[2016-11-04 05:54] LABS: MEAN CORPUSCULAR HEMOGLOBIN 34.9 pg (27.0-33.0); MEAN CORPUSCULAR HGB CONC 34.1 g/dl (32.0-36.5); MEAN CORPUSCULAR VOLUME 102.3 fl (80.0-96.0); RED CELL DISTRIBUTION WIDTH 13.5 % (11.5-14.5); WHITE BLOOD COUNT 5.6 K/mm3 (4.0-10.0)
[2016-11-04 06:00] VITALS: BP 141/74
[2016-11-04] MEDS: HEPARIN SOD (PORCINE) 5000 UNITS/ML VIAL SC SCH (06:00)
[2016-11-04 06:02] LABS: ALBUMIN 3.2 GM/DL (3.2-5.2); ALBUMIN/GLOBULIN RATIO 0.78 (1.00-1.93); ALKALINE PHOSPHATASE 132 U/L (45-117); ALT/SGPT 25 U/L (12-78); ANION GAP 6 MEQ/L (8-16); AST/SGOT 16 U/L (15-37); BILIRUBIN,TOTAL 0.3 MG/DL (0.2-1.0); BLOOD UREA NITROGEN 19 MG/DL (7-18); CALCIUM LEVEL 8.5 MG/DL (8.8-10.2); CARBON DIOXIDE LEVEL 24 MEQ/L (21-32); CHLORIDE LEVEL 109 MEQ/L (98-107); CREATININE FOR GFR 1.19 MG/DL (0.70-1.30); GLOMERULAR FILTRATION RATE > 60.0 (>42); GLUCOSE, FASTING 102 MG/DL (83-110); MAGNESIUM LEVEL 1.8 MG/DL (1.8-2.4); POTASSIUM SERUM 4.4 MEQ/L (3.5-5.1); SODIUM LEVEL 139 MEQ/L (136-145); TOTAL PROTEIN 7.3 GM/DL (6.4-8.2)
[2016-11-04] MEDS: ADDERALL 20 MG PO SCH (09:39)
[2016-11-04] MEDS: OMEPRAZOLE 20 MG CAP PO SCH (09:40)
[2016-11-04] MEDS: CYANOCOBALAMIN 500 MCG TAB PO SCH (09:40)
[2016-11-04] MEDS: NICOTINE 7 MG/24 HR TRANSDERMAL TD SCH (09:40)
[2016-11-04] MEDS: BACLOFEN 10 MG TAB PO SCH (09:40)
[2016-11-04] MEDS: BRIMONIDINE 0.15% OPHTH SOLN 5 ML OU SCH (09:40)
--- NOTE | 2016-11-05 08:51 | IPN ---
DATE: 11/04/2016 Patient is seen and examined at the bedside. Chart has been reviewed. This morning, patient has no new complaints, ambulating well, however needs to do stairs and be independent with his gait prior to discharge to home. No other issues per nursing. Temperature 97.2, respiratory rate 17, blood pressure 141/74, 98% on room air. Generally awake, alert and oriented time three, answering questions appropriately. Lungs are clear to auscultation. No wheezing, rales or rhonchi. Heart S1 and S2. Abdomen is soft, nontender, nondistended. Extremities no pitting edema. Neurologically, patient has chronic right eye ptosis from previous CVA. Imaging studies and laboratory data have been reviewed. ASSESSMENT/PLAN: 70-year-old with history of right sided weakness secondary to CVA, hyperlipidemia, hypertension, PFO closure, recent urinary tract infection (UTI) treated as an outpatient, who presented to the emergency room with altered mental status. Urine culture was negative, showed no growth. CT head was negative. CURRENT ISSUES: 1. Altered mental status, acute metabolic encephalopathy. Patient has had negative infectious workup. CT of the head was unremarkable. Patient is back to his baseline status. Await PT clearance prior to discharge home. 2. Acute kidney injury due to decreased oral intake from altered mental satus. Resolved. 3. Hypertension, on Norvasc. 4. History of right sided CVA with residual weakness on the right. Awaiting physical therapy (PT) clearance prior to discharge home aspirin and Pravachol. 5. Benign prostatic hypertrophy (BPH) on Flomax. 6. Deep vein thrombosis (DVT) prophylaxis subcu heparin. 7. Reflux on Prilosec. 8. Vitamin B12 deficiency on supplement. 9. Hyperlipidemia on Pravastatin. 10. Irritable bowel syndrome, chronic. No acute issues. DISPOSITION: May discharge home once he passes a home safety evaluation and cleared by physical therapy. [facility]
--- NOTE | 2016-12-15 16:47 | DSES ---
DATE OF ADMISSION: 11/01/2016 DATE OF DISCHARGE: 11/04/2016 PRIMARY DISCHARGE DIAGNOSES: 1. Altered mental status. 2. Acute metabolic encephalopathy due to acute kidney injury secondary to dehydration and decreased oral intake. 3. Acute kidney injury with prerenal azotemia due to dehydration and decreased oral intake. 4. Hypertension. 5. Narcolepsy. 6. History of right-sided cerebrovascular accident (CVA) with residual hemiparesis on the right. 7. Benign prostatic hypertrophy (BPH). 8. Hyperlipidemia. 9. Vitamin B12 deficiency. 10. Reflux disease. 11. Irritable bowel syndrome, chronic. DISCHARGE MEDICATIONS: - amlodipine 5 mg daily - Adderall 20 mg every morning - aspirin 81 mg daily - Baclofen 10 mg three times a day - brimonidine tartrate one drop in each eye twice a day - vitamin B12 1000 mcg daily - Bentyl 20 mg twice a day - Xalatan one drop in each eye at bedtime - omeprazole 20 mg daily - Elidel one drop topically as needed - pravastatin 40 mg at bedtime - Flomax 0.4 mg daily The patient is to followup with his primary care physician within a week of discharge. HOSPITAL COURSE: This is a 70-year-old male with a history of cerebrovascular accident (CVA) with right-sided hemiparesis, hypertension, hyperlipidemia, patent foramen ovale (PFO) closure, recent urinary tract infection (UTI) treated as outpatient who presented to the emergency room with acute metabolic encephalopathy, found to have acute kidney injury due to decreased oral intake from altered mental status which has resolved. Presenting creatinine was 2.13. With IV fluid hydration, the patient's creatinine improved to 1.19. Evaluation for altered mental status and acute delirium included a CT of the head which showed chronic findings of aging, showed moderate atrophy with midline shift, moderate periventricular lucencies in white matter most consistent with chronic small vessel ischemic disease and ischemic changes and gliosis. No acute hemorrhage. No axial fluid collection. Vascular calcification are seen in the carotid siphons with no acute hemorrhage. Chest x-ray on 11/01/2016 shows no acute pulmonary disease. Laboratory data improved from creatinine of 2.13 to 1.7 to 1.19 on discharge. Evaluation also included a urinalysis (UA), urine culture and sensitivity with 1+ blood, 1+ protein, 34 red blood cells (RBCs), two white blood cells (WBCs), negative leukocyte esterase with urine culture showing no growth. The patient passed a home safety evaluation and was safely discharged home. LABORATORY DATA ON DISCHARGE: White count 5.6, hemoglobin 10.3, hematocrit 30.2, platelet count 217. Sodium 139, potassium 4.4, chloride 109, bicarbonate 24, BUN 19, creatinine 1.19 , glucose of 102, calcium 8.5, magnesium 1.8, total bilirubin 0.3, AST 16, ALT 25, alkaline phosphatase of 132, ammonia level of 19. MICROBIOLOGY: Urine culture no growth. IMAGING STUDIES: CT of the head shows chronic stable changes with findings of aging. No acute hemorrhage. Chest x-ray shows no acute pulmonary disease. TIME SPENT ON DISCHARGE: 30 minutes. [id number]
== END 2016-11-04 13:29 | disposition home health service (06) | DRG 682 ==
LOC: M ED 14:14 → M ED INP 17:21 → MERGE 17:21 → M MSPAV 20:40
PROVIDERS: ADMIT Internal Medicine; ATTEND General Practice
DX: N17.9 Acute kidney failure, unspecified (principal); G93.41 Metabolic encephalopathy; I69.351 Hemiplegia and hemiparesis following cerebral infarction affecting right dominant side; F03.90 Unspecified dementia, unspecified severity, without behavioral disturbance, psychotic disturbance, mood disturbance, and anxiety; E78.5 Hyperlipidemia, unspecified; I10 Essential (primary) hypertension; K58.8 Other irritable bowel syndrome; E86.0 Dehydration; G47.419 Narcolepsy without cataplexy; Z79.82 Long term (current) use of aspirin; Z79.899 Other long term (current) drug therapy; Z88.2 Allergy status to sulfonamides; Z79.1 Long term (current) use of non-steroidal anti-inflammatories (NSAID); N40.0 Benign prostatic hyperplasia without lower urinary tract symptoms; K21.9 Gastro-esophageal reflux disease without esophagitis; E53.8 Deficiency of other specified B group vitamins

== ENCOUNTER → 2016-11-23 | Outpatient (REF) | payer MEDICARE ==
[~2016-11-23] MED LIST changes: +BACL1TAB8 PO; +BENT10CA PO; +ELID1CRE11 TOP; +MOTR200T44 PO; +OMEP40CA2 PO; +PRAV40TA2 PO; +PRESCAP PO; +VITA10002 PO; +XALA0.007 OU
[2016-11-23 18:29] LABS: ALBUMIN 3.5 GM/DL (3.2-5.2); ALBUMIN/GLOBULIN RATIO 0.92 (1.00-1.93); BILIRUBIN,TOTAL 0.2 MG/DL (0.2-1.0); CALCIUM LEVEL 8.3 MG/DL (8.8-10.2); CREATININE FOR GFR 1.27 MG/DL (0.70-1.30); GLOMERULAR FILTRATION RATE 59.3 (>42); MAGNESIUM LEVEL 2.1 MG/DL (1.8-2.4); POTASSIUM SERUM 4.9 MEQ/L (3.5-5.1); TOTAL PROTEIN 7.3 GM/DL (6.4-8.2)
[2016-11-23 18:32] LABS: FOLATE 16.3 NG/ML (>5.4)
[2016-11-23 18:39] LABS: BASO % 0.8 % (0.0-1.0); EOS # 0.2 K/mm3 (0.0-0.50); EOS % 3.9 % (0.0-3.0); LARGE UNSTAINED CELL # 0.1 K/mm3 (0.0-0.4); LARGE UNSTAINED CELL % 1.8 % (0.0-4.0); LYMPH # 1.5 K/mm3 (1.5-4.5); LYMPH % 23.9 % (24.0-44.0); MEAN CORPUSCULAR HEMOGLOBIN 34.4 pg (27.0-33.0); MEAN CORPUSCULAR HGB CONC 32.6 g/dl (32.0-36.5); MEAN CORPUSCULAR VOLUME 105.8 fl (80.0-96.0); MONO # 0.6 K/mm3 (0.0-0.8); NEUTROPHILS # 3.6 K/mm3 (1.8-7.7); NEUTROPHILS % 59.6 % (36.0-66.0); PLATELET COUNT, AUTOMATED 298 k/mm3 (150-450); RED CELL DISTRIBUTION WIDTH 13.5 % (11.5-14.5)
== END ==
LOC: M SFHCCLAY 12:03
PROVIDERS: ATTEND Family Medicine
DX: D64.9 Anemia, unspecified (principal); N17.9 Acute kidney failure, unspecified

== ENCOUNTER → 2017-01-29 | Outpatient (REF) | payer MEDICARE ==
[2017-01-29 17:13] LABS: ALBUMIN 3.9 GM/DL (3.2-5.2); ALBUMIN/GLOBULIN RATIO 1.11 (1.00-1.93); ALKALINE PHOSPHATASE 93 U/L (45-117); ALT/SGPT 19 U/L (12-78); ANION GAP 7 MEQ/L (8-16); AST/SGOT 13 U/L (15-37); BILIRUBIN,TOTAL 0.2 MG/DL (0.2-1.0); BLOOD UREA NITROGEN 23 MG/DL (7-18); CALCIUM LEVEL 8.6 MG/DL (8.8-10.2); CARBON DIOXIDE LEVEL 27 MEQ/L (21-32); CHLORIDE LEVEL 109 MEQ/L (98-107); CREATININE FOR GFR 1.12 MG/DL (0.70-1.30); GLOMERULAR FILTRATION RATE > 60.0 (>42); GLUCOSE, FASTING 104 MG/DL (83-110); POTASSIUM SERUM 4.8 MEQ/L (3.5-5.1); SODIUM LEVEL 143 MEQ/L (136-145); TOTAL PROTEIN 7.4 GM/DL (6.4-8.2)
[2017-01-29 17:22] LABS: VITAMIN B12 LEVEL 1271 PG/ML (247-911)
[2017-01-29 17:36] LABS: BASO # 0.1 10^3/uL (0.0-0.2); BASO % 0.9 % (0.0-1.0); EOS # 0.2 10^3/uL (0.0-0.50); EOS % 2.4 % (0.0-3.0); IMMATURE GRANULOCYTE % 0.3 % (0-0); LYMPH % 26.1 % (24.0-44.0); MEAN CORPUSCULAR HEMOGLOBIN 34.5 pg (27.0-33.0); MEAN CORPUSCULAR HGB CONC 33.2 g/dl (32.0-36.5); MONO % 13.1 % (0.0-5.0); NEUTROPHILS # 4.3 10^3/uL (1.8-7.7); NEUTROPHILS % 57.2 % (36.0-66.0); PLATELET COUNT, AUTOMATED 259 10^3/uL (150-450); WHITE BLOOD COUNT 7.5 10^3/uL (4.0-10.0)
== END ==
LOC: M SFHCCLAY 10:58
PROVIDERS: ATTEND Family Medicine
DX: I10 Essential (primary) hypertension (principal); D64.9 Anemia, unspecified
CPT/HCPCS: 80053; 82607; 83540; 85025; G0463

== ENCOUNTER → 2017-08-13 | Outpatient (REF) | DX: R05 Cough (principal) ==

== ENCOUNTER → 2017-08-17 | Outpatient (REF) ==
[2017-08-17 09:23] LABS: HEMATOCRIT 31.2 % (42.0-52.0); HEMOGLOBIN 10.6 g/dl (13.5-17.5); MEAN CORPUSCULAR HEMOGLOBIN 35.1 pg (27.0-33.0); MEAN CORPUSCULAR VOLUME 103.3 fl (80.0-96.0); PLATELET COUNT, AUTOMATED 282 10^3/uL (150-450); RED BLOOD COUNT 3.02 10^6/uL (4.30-6.10); RED CELL DISTRIBUTION WIDTH 12.7 % (11.5-14.5); WHITE BLOOD COUNT 7.5 10^3/uL (4.0-10.0)
[2017-08-17 10:08] LABS: ANION GAP 6 MEQ/L (8-16); BLOOD UREA NITROGEN 23 MG/DL (7-18); CALCIUM LEVEL 8.6 MG/DL (8.8-10.2); CARBON DIOXIDE LEVEL 28 MEQ/L (21-32); CHLORIDE LEVEL 103 MEQ/L (98-107); CREATININE FOR GFR 1.35 MG/DL (0.70-1.30); GLOMERULAR FILTRATION RATE 55.2 (>42); GLUCOSE, FASTING 98 MG/DL (70-100); POTASSIUM SERUM 4.7 MEQ/L (3.5-5.1); SODIUM LEVEL 137 MEQ/L (136-145)
== END ==
DX: I10 Essential (primary) hypertension (principal)

== ENCOUNTER → 2017-08-23 | Outpatient (CLI) | payer MEDICARE | LOC: M RAD 16:43 | DX: G46.7 Other lacunar syndromes (principal); S06.351D Traumatic hemorrhage of left cerebrum with loss of consciousness of 30 minutes or less, subsequent encounter; X58.XXXD Exposure to other specified factors, subsequent encounter; Y92.89 Other specified places as the place of occurrence of the external cause | CPT/HCPCS: 70450 ==

== ENCOUNTER → 2018-08-12 | Outpatient (REF) | payer MEDICARE ==
[~2018-08-12] MED LIST changes: -/MELO7TA PO; -/PRAV20TA PO; -AMLO5TAB2 PO; +AMLO5TAB6 PO; -ASPI1TAB PO; +ASPI81TA26 PO; +FLOM0.4C39 PO; -FLOM5CAP PO; +LATA0.0013 OU; -LATA5OPD OU; +LISI-672 PO; -LISI30TA4 PO; +MOBI4TAB PO; +PRAV1TAB39 PO; -TIMO25OPD OU; +VITA100018 PO; -VITA100072 PO; +[UNRECOGNIZED DRUG - CODE] OU
[2018-08-12 18:17] LABS: BASO % 0.5 % (0.0-1.0); EOS # 0.6 10^3/uL (0.0-0.50); EOS % 7.4 % (0.0-3.0); HEMATOCRIT 30.8 % (42.0-52.0); HEMOGLOBIN 10.1 g/dl (13.5-17.5); LYMPH # 2.1 10^3/uL (1.5-4.5); LYMPH % 28.4 % (24.0-44.0); MEAN CORPUSCULAR HEMOGLOBIN 33.9 pg (27.0-33.0); MEAN CORPUSCULAR HGB CONC 32.8 g/dl (32.0-36.5); MEAN CORPUSCULAR VOLUME 103.4 fl (80.0-96.0); MONO # 0.8 10^3/uL (0.0-0.8); MONO % 9.9 % (0.0-5.0); NEUTROPHILS % 53.3 % (36.0-66.0); PLATELET COUNT, AUTOMATED 291 10^3/uL (150-450); RED BLOOD COUNT 2.98 10^6/uL (4.30-6.10); WHITE BLOOD COUNT 7.5 10^3/uL (4.0-10.0)
[2018-08-12 18:28] LABS: ALBUMIN 3.2 GM/DL (3.2-5.2); BILIRUBIN,TOTAL 0.3 MG/DL (0.2-1.0); CALCIUM LEVEL 8.3 MG/DL (8.8-10.2); CREATININE FOR GFR 1.71 MG/DL (0.70-1.30); GLOMERULAR FILTRATION RATE 41.9 (>42); POTASSIUM SERUM 4.2 MEQ/L (3.5-5.1)
== END ==
LOC: M SFHCCLAY 10:37
PROVIDERS: ATTEND Family Medicine
DX: I10 Essential (primary) hypertension (principal)
CPT/HCPCS: 80053; 85025; G0463

== ENCOUNTER 2020-09-07 15:25 | Emergency (ER) | payer MEDICARE ==
[~2020-09-07] VITALS: Ht 165.1 cm; Wt 72.7 kg
[~2020-09-07 15:25] MED LIST changes: +AMLO1TAB24 PO; -AMLO5TAB6 PO; +AMPH1CAP16 PO; -AMPH20CA PO; +ASPI81TA86 PO; -CLIN150C14 PO; +CLIN150C15 PO; +CYAN100049 PO; -LISI-672 PO; +LISI30TA4 PO; +OMEP1CAP73 PO; -OMEP40CA2 PO; +OMEP40CA97 PO; -VITA10002 PO
[2020-09-07] MEDS ORDERED: NS 500 ML IV ONE (16:05)
[2020-09-07 16:15] LABS: BASO # 0.1 10^3/uL (0.0-0.2); BASO % 0.8 % (0.0-1.0); EOS # 0.1 10^3/uL (0.0-0.5); EOS % 1.5 % (0.0-3.0); HEMATOCRIT 37.1 % (42.0-52.0); HEMOGLOBIN 12.2 g/dl (13.5-17.5); LYMPH # 2.2 10^3/uL (1.5-5.0); LYMPH % 28.1 % (24.0-44.0); MEAN CORPUSCULAR HEMOGLOBIN 34.8 pg (27.0-33.0); MEAN CORPUSCULAR HGB CONC 32.9 g/dl (32.0-36.5); MEAN CORPUSCULAR VOLUME 105.7 fl (80.0-96.0); MONO % 12.8 % (2.0-8.0); NEUTROPHILS # 4.4 10^3/uL (1.5-8.5); NEUTROPHILS % 56.4 % (36.0-66.0); PLATELET COUNT, AUTOMATED 234 10^3/uL (150-450); RED BLOOD COUNT 3.51 10^6/uL (4.30-6.10); WHITE BLOOD COUNT 7.8 10^3/uL (4.0-10.0)
[2020-09-07 16:19] LABS: OSMOLALITY SERUM 297 MOSM/KG (280-301)
--- NOTE | 2020-09-07 16:27 | REP ---
INDICATION: Altered Mental Status COMPARISON: 08/23/2017 TECHNIQUE: Axial noncontrast images from the skull base to the thoracic inlet with coronal reformations. This CT examination was performed using the following dose reduction techniques: Automated exposure control, adjustment of mA and/or kv according to the patient's size, and use of iterative reconstruction technique. FINDINGS: Atrophy with periventricular leukomalacia and microvascular ischemic changes are appreciated. The ventricles and sulci are symmetric. Chang-white differentiation is maintained. There is no evidence for acute intracranial hemorrhage, mass/mass effect, pathology or infarction. No extra-axial fluid collection. Calvarium is intact. Paranasal sinuses and mastoid air cells are clear. IMPRESSION: Atrophy and microvascular ischemic changes. No acute intracranial hemorrhage, infarction, or mass/mass effect. <Electronically signed by Jamaal Ruth > 09/07/20 [id number]
[2020-09-07 16:45] LABS: ALBUMIN 3.4 GM/DL (3.2-5.2); ALT/SGPT 17 U/L (12-78); BILIRUBIN,DIRECT < 0.1 MG/DL (0.0-0.2); BILIRUBIN,TOTAL 0.2 MG/DL (0.2-1.0); BLOOD UREA NITROGEN 24 MG/DL (7-18); CALCIUM LEVEL 7.8 MG/DL (8.8-10.2); CARBON DIOXIDE LEVEL 24 MEQ/L (21-32); CHLORIDE LEVEL 109 MEQ/L (98-107); CK-MB VALUE MASS < 1.0 NG/ML (<3.6); CPK CREATINE PHOSPHOKINASE 92 U/L (39-308); CREATININE FOR GFR 1.33 MG/DL (0.70-1.30); GLOMERULAR FILTRATION RATE 55.7 (>42); GLUCOSE, FASTING 104 MG/DL (70-100); MB/CK RELATIVE INDEX 1.09 (< OR =4); POTASSIUM SERUM 4.6 MEQ/L (3.5-5.1); SODIUM LEVEL 140 MEQ/L (136-145); TOTAL PROTEIN 7.3 GM/DL (6.4-8.2); TROPONIN I < 0.02 NG/ML (< 0.10)
--- NOTE | 2020-09-07 16:49 | ECGEPIP ---
[facility] - ED Test Date: 2020-09-07 Pat Name: MURTAZA KELSEY Department: Room: - Gender: Male Assistant [employer]: DOUG : 1945 Requested By: Angie Navas Order Number: [id number] Reading MD: Angie Navas Measurements Intervals [place] Rate: 77 P: 62 OK: 174 QRS: -3 QRSD: 130 T: 69 QT: 408 QTc: 461 Interpretive Statements Normal sinus rhythm Left bundle branch block new 10/08/16 Electronically Signed on 09-07-2020 16:49:02 EDT by Angie Navas
[2020-09-07 17:45] VITALS: BP 137/68
== END 2020-09-07 17:51 | disposition home or self-care (01) ==
LOC: M ED 15:25
DX: R42 Dizziness and giddiness (principal); I44.7 Left bundle-branch block, unspecified; I10 Essential (primary) hypertension; Z86.73 Personal history of transient ischemic attack (TIA), and cerebral infarction without residual deficits; E78.5 Hyperlipidemia, unspecified; M48.061 Spinal stenosis, lumbar region without neurogenic claudication; Z85.828 Personal history of other malignant neoplasm of skin; G47.30 Sleep apnea, unspecified; N40.1 Benign prostatic hyperplasia with lower urinary tract symptoms; F17.200 Nicotine dependence, unspecified, uncomplicated; Z79.82 Long term (current) use of aspirin; Z79.899 Other long term (current) drug therapy; Z88.2 Allergy status to sulfonamides

== ENCOUNTER → 2020-09-12 | Outpatient (REF) | payer MEDICARE ==
[2020-09-12 16:07] LABS: APPEARANCE, URINE CLOUDY (CLEAR); BACTERIA, URINE AUTO NEGATIVE (NEGATIVE); BILIRUBIN, URINE AUTO NEGATIVE (NEGATIVE); BLOOD, URINE BLOOD 3+ (NEGATIVE); COLOR, URINE YELLOW (YELLOW); GLUCOSE, URINE (UA) AUTO NEGATIVE (NEGATIVE); KETONE, URINE AUTO NEGATIVE (NEGATIVE); LEUKOCYTE ESTERASE, URINE AUTO NEGATIVE (NEGATIVE); MUCUS, URINE SMALL (NEGATIVE); NITRITE, URINE AUTO NEGATIVE (NEGATIVE); PROTEIN, URINE AUTO 1+ mg/dL (NEGATIVE); RBC, URINE AUTO TNTC /HPF (0-3); SPECIFIC GRAVITY URINE AUTO 1.019 (1.002-1.035); SQUAMOUS EPITHELIAL CELL UR AU 0 /HPF (0-6); UROBILINOGEN, URINE AUTO 0.2 mg/dL (0.0-2.0); WBC, URINE AUTO 22 /HPF (0-3)
== END ==
LOC: M LAB REF 15:55
PROVIDERS: ATTEND Emergency Medicine
DX: R39.11 Hesitancy of micturition (principal)

== ENCOUNTER → 2021-06-19 | Outpatient (REF) | payer MEDICARE ==
[~2021-06-19] MED LIST changes: -CLIN150C15 PO; +CLIN150C17 PO; -DICY20TA11 PO; +DICY20TA20 PO; +OMEP40CA4 PO; -OMEP40CA97 PO
[2021-06-20 11:49] LABS: BASO # 0.1 10^3/uL (0.0-0.2); BASO % 0.6 % (0.0-1.0); EOS # 0.1 10^3/uL (0.0-0.5); EOS % 1.4 % (0.0-3.0); HEMATOCRIT 38.6 % (42.0-52.0); HEMOGLOBIN 12.7 g/dl (13.5-17.5); LYMPH # 2.1 10^3/uL (1.5-5.0); LYMPH % 26.6 % (24.0-44.0); MEAN CORPUSCULAR HEMOGLOBIN 34.9 pg (27.0-33.0); MEAN CORPUSCULAR HGB CONC 32.9 g/dl (32.0-36.5); NEUTROPHILS # 4.7 10^3/uL (1.5-8.5); NEUTROPHILS % 59.1 % (36.0-66.0); PLATELET COUNT, AUTOMATED 258 10^3/uL (150-450); RED BLOOD COUNT 3.64 10^6/uL (4.30-6.10); WHITE BLOOD COUNT 7.9 10^3/uL (4.0-10.0)
[2021-06-20 12:20] LABS: ALBUMIN 3.8 GM/DL (3.2-5.2); BILIRUBIN,TOTAL 0.3 MG/DL (0.2-1.0); CREATININE FOR GFR 1.4 MG/DL (0.70-1.30); GLOMERULAR FILTRATION RATE 52.3 (>42); POTASSIUM SERUM 6.3 MEQ/L (3.5-5.1); TOTAL PROTEIN 7.6 GM/DL (6.4-8.2)
[2021-06-20 12:32] LABS: HEMOGLOBIN A1c 5.8 %
== END ==
LOC: M SFHCCLAY 14:41
PROVIDERS: ATTEND Family Medicine
DX: D64.9 Anemia, unspecified (principal); I10 Essential (primary) hypertension; Z79.899 Other long term (current) drug therapy

== ENCOUNTER → 2022-04-21 | Outpatient (REF) | payer MEDICARE ==
[2022-04-22 11:51] LABS: BASO # 0.1 10^3/uL (0.0-0.2); BASO % 0.8 % (0.0-1.0); EOS # 0.3 10^3/uL (0.0-0.5); EOS % 3.5 % (0.0-3.0); HEMATOCRIT 39.7 % (42.0-52.0); HEMOGLOBIN 12.7 g/dl (13.5-17.5); LYMPH # 2.6 10^3/uL (1.5-5.0); LYMPH % 26.5 % (24.0-44.0); MEAN CORPUSCULAR HEMOGLOBIN 34.3 pg (27.0-33.0); MEAN CORPUSCULAR VOLUME 107.3 fl (80.0-96.0); MONO # 1.2 10^3/uL (0.0-0.8); MONO % 12.3 % (2.0-8.0); NEUTROPHILS # 5.5 10^3/uL (1.5-8.5); NEUTROPHILS % 56.6 % (36.0-66.0); PLATELET COUNT, AUTOMATED 257 10^3/uL (150-450); WHITE BLOOD COUNT 9.7 10^3/uL (4.0-10.0)
[2022-04-22 12:21] LABS: ALBUMIN 3.7 G/DL (3.2-5.2); BILIRUBIN,TOTAL 0.4 MG/DL (0.3-1.2); CALCIUM LEVEL 8.9 MG/DL (8.3-10.6); CREATININE FOR GFR 1.28 MG/DL (0.70-1.30); GLOMERULAR FILTRATION RATE 57.9 (>42); POTASSIUM SERUM 5.8 MMOL/L (3.5-5.1); TOTAL PROTEIN 7.5 G/DL (5.7-8.2)
[2022-04-22 13:10] LABS: HEMOGLOBIN A1c 5.6 % (4.0-6.0)
== END ==
LOC: M SFHCCLAY 15:46
PROVIDERS: ATTEND Family Medicine
DX: R73.01 Impaired fasting glucose (principal); I10 Essential (primary) hypertension

== ENCOUNTER 2023-02-15 14:28 | Inpatient (IN) | payer MEDICARE ==
[2023-02-15] MEDS ORDERED: LIDOCAINE 5% (LIDODERM) PATCH TD ONE (21:15)
[2023-02-15] MEDS ORDERED: NS 1,000 ML IV ONE (21:15)
[2023-02-15] MEDS ORDERED: ACETAMINOPHEN *IV* 1,000 MG in IV 1 EA IV ONE (21:15)
[2023-02-15] MEDS ORDERED: MED REC IN PROGRESS XX SCH (21:35)
[2023-02-15 21:42] LABS: BASO # 0.1 10^3/uL (0.0-0.2); BASO % 0.6 % (0.0-1.0); EOS # 0.2 10^3/uL (0.0-0.5); EOS % 1.9 % (0.0-3.0); HEMATOCRIT 36.6 % (42.0-52.0); HEMOGLOBIN 12.1 g/dl (13.5-17.5); LYMPH # 2.5 10^3/uL (1.5-5.0); LYMPH % 30.5 % (24.0-44.0); MEAN CORPUSCULAR HEMOGLOBIN 35.2 pg (27.0-33.0); MEAN CORPUSCULAR HGB CONC 33.1 g/dl (32.0-36.5); MEAN CORPUSCULAR VOLUME 106.4 fl (80.0-96.0); MONO % 12.9 % (2.0-8.0); NEUTROPHILS # 4.3 10^3/uL (1.5-8.5); NEUTROPHILS % 53.9 % (36.0-66.0); PLATELET COUNT, AUTOMATED 218 10^3/uL (150-450); RED BLOOD COUNT 3.44 10^6/uL (4.30-6.10); WHITE BLOOD COUNT 8.1 10^3/uL (4.0-10.0)
[2023-02-15 22:14] LABS: RSV AMPLIFICATION NEGATIVE (NEGATIVE)
[2023-02-15] MEDS ORDERED: REFR0.5D8 OU (23:10)
[2023-02-15] MEDS ORDERED: RIVA1DIS2 TOP (23:13)
[2023-02-15] MEDS ORDERED: CITA20TA6 PO (23:15)
[2023-02-15] MEDS ORDERED: ISOVUE-370 76% 100ML VIAL As Ordered ONE (23:15)
[2023-02-15] MEDS ORDERED: NAME21CA PO (23:16)
[2023-02-15] MEDS ORDERED: AREDS PO (23:20)
[2023-02-15] MEDS ORDERED: FERR325T3 PO (23:21)
[2023-02-15] MEDS ORDERED: TRAM50TA2 PO (23:25)
[2023-02-15] MEDS ORDERED: HOME MED LIST COMPLETE! XX SCH (23:45)
[2023-02-16] MEDS ORDERED: ACETAMINOPHEN TAB 650MG DOSE (2X325MG) PO PRN (02:05)
[2023-02-16 05:00] VITALS: BP 176/74; TEMP 97.8; O2SAT 97
[2023-02-16] MEDS ORDERED: **hydrALAZINE** 10 MG TAB PO ONE (05:25)
[2023-02-16 07:16] LABS: BASO # 0.1 10^3/uL (0.0-0.2); BASO % 0.6 % (0.0-1.0); EOS # 0.2 10^3/uL (0.0-0.5); EOS % 3.1 % (0.0-3.0); HEMATOCRIT 33.4 % (42.0-52.0); HEMOGLOBIN 11.3 g/dl (13.5-17.5); LYMPH # 2.2 10^3/uL (1.5-5.0); LYMPH % 28.3 % (24.0-44.0); MEAN CORPUSCULAR HEMOGLOBIN 35.6 pg (27.0-33.0); MEAN CORPUSCULAR HGB CONC 33.8 g/dl (32.0-36.5); MEAN CORPUSCULAR VOLUME 105.4 fl (80.0-96.0); MONO % 13.1 % (2.0-8.0); NEUTROPHILS # 4.3 10^3/uL (1.5-8.5); NEUTROPHILS % 54.6 % (36.0-66.0); PLATELET COUNT, AUTOMATED 198 10^3/uL (150-450); RED BLOOD COUNT 3.17 10^6/uL (4.30-6.10); WHITE BLOOD COUNT 7.8 10^3/uL (4.0-10.0)
[2023-02-16 07:51] LABS: BLOOD UREA NITROGEN 19 MG/DL (9-23); CALCIUM LEVEL 7.8 MG/DL (8.3-10.6); CARBON DIOXIDE LEVEL 26 MMOL/L (20-31); CHLORIDE LEVEL 105 MMOL/L (98-107); CREATININE FOR GFR 1.15 MG/DL (0.70-1.30); GLOMERULAR FILTRATION RATE > 60.0 (>42); GLUCOSE, FASTING 104 MG/DL (74-106); MAGNESIUM LEVEL 1.6 MG/DL (1.8-2.4); POTASSIUM SERUM 4.4 MMOL/L (3.5-5.1); SODIUM LEVEL 138 MMOL/L (136-145)
[2023-02-16 08:00] VITALS: BP 174/76; TEMP 97.7; O2SAT 95
[2023-02-16] MEDS ORDERED: MEMANTINE 5MG TABLET (NAMENDA) PO SCH ×3 (09:00→21:00)
[2023-02-16] MEDS ORDERED: BRIMONIDINE 0.15% OPHTH SOLN 5 ML OU SCH (09:00)
[2023-02-16] MEDS ORDERED: traMADol 50 MG TAB PO SCH (09:00)
[2023-02-16] MEDS ORDERED: MAG SULF 1GM/100ML (MAG RUN) 1 GM in IV 1 EA IV ONE (09:00)
[2023-02-16] MEDS: ASPIRIN 81MG ENTERIC TABLET PO SCH (09:49)
[2023-02-16] MEDS: OMEPRAZOLE 20MG CAP PO SCH (09:50)
[2023-02-16] MEDS: FERROUS SULFATE 325MG TAB PO SCH (09:50)
[2023-02-16] MEDS: CitaloPRAM (CeleXA) 20 MG TAB PO SCH (09:50)
[2023-02-16] MEDS: TAMSULOSIN 0.4 MG CAP PO SCH (09:50)
[2023-02-16] MEDS: LIDOCAINE 5% (LIDODERM) PATCH TD SCH (09:51)
[2023-02-16 12:00] VITALS: BP 151/72; TEMP 98.5; O2SAT 97
[2023-02-16] MEDS: MAGNESIUM OXIDE 400MG TAB (MAG-OX) PO SCH ×2 (12:49→22:04)
[2023-02-16] MEDS: **hydrALAZINE HCL** 25 MG TAB PO SCH ×2 (12:50→18:20)
[2023-02-16] MEDS: HEPARIN SOD (PORCINE) 5000UNITS/ML 1ML VIAL/SYRINGE SC SCH ×2 (14:45→22:04)
[2023-02-16 16:00] VITALS: BP 150/76; TEMP 98.8; O2SAT 95
[2023-02-16 17:53] LABS: THYROID STIMULATING HORMONE 1.681 uIU/ML (0.55-4.78)
[2023-02-16 17:54] LABS: FREE T4 0.85 NG/DL (0.89-1.76)
[2023-02-16] MEDS: PRAVASTATIN 20 MG TAB PO SCH (22:04)
[2023-02-16 23:34] VITALS: BP 155/70; TEMP 98.1; O2SAT 95
[2023-02-17] VITALS (7 sets, daily range): BP systolic 130–184; BP diastolic 58–94; TEMP 96.8–97.8; O2SAT 95–98
[2023-02-17] MEDS: **hydrALAZINE HCL** 25 MG TAB PO SCH ×5 (00:24→23:54)
[2023-02-17] MEDS: LATANOPROST 0.005% OPHTH SOLN 2.5 ML OU SCH ×2 (00:55→21:33)
[2023-02-17 05:45] LABS: BASO % 0.4 % (0.0-1.0); EOS # 0.1 10^3/uL (0.0-0.5); EOS % 1.4 % (0.0-3.0); HEMATOCRIT 33.4 % (42.0-52.0); HEMOGLOBIN 11.2 g/dl (13.5-17.5); LYMPH # 2.2 10^3/uL (1.5-5.0); LYMPH % 26.3 % (24.0-44.0); MEAN CORPUSCULAR HEMOGLOBIN 34.5 pg (27.0-33.0); MEAN CORPUSCULAR HGB CONC 33.5 g/dl (32.0-36.5); MEAN CORPUSCULAR VOLUME 102.8 fl (80.0-96.0); MONO % 11.6 % (2.0-8.0); NEUTROPHILS # 5.1 10^3/uL (1.5-8.5); NEUTROPHILS % 60.1 % (36.0-66.0); PLATELET COUNT, AUTOMATED 203 10^3/uL (150-450); RED BLOOD COUNT 3.25 10^6/uL (4.30-6.10); WHITE BLOOD COUNT 8.5 10^3/uL (4.0-10.0)
[2023-02-17 06:03] LABS: ALBUMIN 2.9 G/DL (3.2-5.2); ALKALINE PHOSPHATASE 89 U/L (46-116); ALT/SGPT 10 U/L (7.0-40); AST/SGOT 13 U/L (<34); BILIRUBIN,TOTAL 0.5 MG/DL (0.3-1.2); BLOOD UREA NITROGEN 18 MG/DL (9-23); CARBON DIOXIDE LEVEL 25 MMOL/L (20-31); CHLORIDE LEVEL 105 MMOL/L (98-107); CREATININE FOR GFR 1.15 MG/DL (0.70-1.30); GLOMERULAR FILTRATION RATE > 60.0 (>42); GLUCOSE, FASTING 110 MG/DL (74-106); MAGNESIUM LEVEL 1.9 MG/DL (1.8-2.4); POTASSIUM SERUM 3.8 MMOL/L (3.5-5.1); SODIUM LEVEL 138 MMOL/L (136-145); TOTAL PROTEIN 6.2 G/DL (5.7-8.2)
[2023-02-17] MEDS: HEPARIN SOD (PORCINE) 5000UNITS/ML 1ML VIAL/SYRINGE SC SCH ×3 (06:13→21:33)
[2023-02-17] MEDS: CitaloPRAM (CeleXA) 20 MG TAB PO SCH (09:07)
[2023-02-17] MEDS: TAMSULOSIN 0.4 MG CAP PO SCH (09:07)
[2023-02-17] MEDS: OMEPRAZOLE 20MG CAP PO SCH (09:07)
[2023-02-17] MEDS: FERROUS SULFATE 325MG TAB PO SCH (09:07)
[2023-02-17] MEDS: ASPIRIN 81MG ENTERIC TABLET PO SCH (09:07)
[2023-02-17] MEDS: LIDOCAINE 5% (LIDODERM) PATCH TD SCH (09:08)
[2023-02-17] MEDS: MAGNESIUM OXIDE 400MG TAB (MAG-OX) PO SCH ×2 (09:08→21:32)
[2023-02-17] MEDS: PRAVASTATIN 20 MG TAB PO SCH (21:32)
[2023-02-18 03:39] VITALS: BP 172/68; TEMP 99.7; O2SAT 96
[2023-02-18 05:40] LABS: BASO % 0.5 % (0.0-1.0); EOS # 0.2 10^3/uL (0.0-0.5); EOS % 2.1 % (0.0-3.0); HEMATOCRIT 33.3 % (42.0-52.0); HEMOGLOBIN 11.4 g/dl (13.5-17.5); LYMPH # 2.4 10^3/uL (1.5-5.0); MEAN CORPUSCULAR HEMOGLOBIN 35.3 pg (27.0-33.0); MEAN CORPUSCULAR HGB CONC 34.2 g/dl (32.0-36.5); MEAN CORPUSCULAR VOLUME 103.1 fl (80.0-96.0); MONO # 1.1 10^3/uL (0.0-0.8); MONO % 13.1 % (2.0-8.0); NEUTROPHILS # 4.7 10^3/uL (1.5-8.5); NEUTROPHILS % 55.8 % (36.0-66.0); PLATELET COUNT, AUTOMATED 205 10^3/uL (150-450); RED BLOOD COUNT 3.23 10^6/uL (4.30-6.10); WHITE BLOOD COUNT 8.4 10^3/uL (4.0-10.0)
[2023-02-18 05:50] LABS: ALBUMIN 2.9 G/DL (3.2-5.2); BILIRUBIN,TOTAL 0.4 MG/DL (0.3-1.2); CALCIUM LEVEL 7.8 MG/DL (8.3-10.6); CREATININE FOR GFR 1.25 MG/DL (0.70-1.30); GLOMERULAR FILTRATION RATE 59.3 (>42); MAGNESIUM LEVEL 1.9 MG/DL (1.8-2.4); POTASSIUM SERUM 4.2 MMOL/L (3.5-5.1); TOTAL PROTEIN 6.4 G/DL (5.7-8.2)
[2023-02-18] MEDS: HEPARIN SOD (PORCINE) 5000UNITS/ML 1ML VIAL/SYRINGE SC SCH (06:14)
[2023-02-18] MEDS: **hydrALAZINE HCL** 25 MG TAB PO SCH ×2 (06:17→12:22)
[2023-02-18 07:54] VITALS: BP 135/61; TEMP 97.7; O2SAT 95
[2023-02-18] MEDS: TAMSULOSIN 0.4 MG CAP PO SCH (08:24)
[2023-02-18] MEDS: OMEPRAZOLE 20MG CAP PO SCH (08:24)
[2023-02-18] MEDS: CitaloPRAM (CeleXA) 20 MG TAB PO SCH (08:24)
[2023-02-18] MEDS: MAGNESIUM OXIDE 400MG TAB (MAG-OX) PO SCH (08:25)
[2023-02-18] MEDS: ASPIRIN 81MG ENTERIC TABLET PO SCH (08:25)
[2023-02-18] MEDS: FERROUS SULFATE 325MG TAB PO SCH (08:26)
[2023-02-18] MEDS: LIDOCAINE 5% (LIDODERM) PATCH TD SCH (08:26)
[2023-02-18] MEDS ORDERED: LIDOCAINE 5% (LIDODERM) PATCH TD SCH (09:00)
[2023-02-18] MEDS ORDERED: amLODIPine 5 MG TAB PO SCH (09:00)
[2023-02-18 11:56] VITALS: BP 130/65; TEMP 97.6; O2SAT 95
[2023-02-18 12:22] VITALS: BP 130/65
[2023-02-18] MEDS ORDERED: ATROPINE SULFATE 1% OPHTH SOLN 2ML BTL SL PRN (14:40)
[2023-02-18] MEDS: MORPHINE 10MG/0.5ML ORAL CONCENTRATE SOLUTION U/D SL PRN ×3 (16:10→23:58)
[2023-02-18] MEDS ORDERED: FLUOCINONIDE 0.05% CREAM 15GM TOP PRN (16:40)
[2023-02-18] MEDS ORDERED: **hydrALAZINE HCL** 25 MG TAB PO SCH (20:00)
[2023-02-18] MEDS: LATANOPROST 0.005% OPHTH SOLN 2.5 ML OU SCH (20:29)
[2023-02-19] MEDS: LORazepam 1 MG TAB PO PRN ×2 (01:28→22:55)
[2023-02-19] MEDS: TAMSULOSIN 0.4 MG CAP PO SCH (09:32)
[2023-02-19] MEDS: OMEPRAZOLE 20MG CAP PO SCH (09:32)
[2023-02-19] MEDS: LIDOCAINE 5% (LIDODERM) PATCH TD SCH (09:32)
[2023-02-19] MEDS: MORPHINE 10MG/0.5ML ORAL CONCENTRATE SOLUTION U/D SL PRN ×2 (09:37→17:20)
[2023-02-19] MEDS: LATANOPROST 0.005% OPHTH SOLN 2.5 ML OU SCH (22:55)
[2023-02-20] MEDS: MORPHINE 10MG/0.5ML ORAL CONCENTRATE SOLUTION U/D SL PRN ×2 (09:10→14:38)
[2023-02-20] MEDS: OMEPRAZOLE 20MG CAP PO SCH (09:11)
[2023-02-20] MEDS: TAMSULOSIN 0.4 MG CAP PO SCH (09:11)
[2023-02-20] MEDS: LIDOCAINE 5% (LIDODERM) PATCH TD SCH (09:12)
[2023-02-20] MEDS: LATANOPROST 0.005% OPHTH SOLN 2.5 ML OU SCH (19:48)
[2023-02-21] MEDS: TAMSULOSIN 0.4 MG CAP PO SCH (08:35)
[2023-02-21] MEDS: MORPHINE 10MG/0.5ML ORAL CONCENTRATE SOLUTION U/D SL PRN ×2 (08:35→15:11)
[2023-02-21] MEDS: LIDOCAINE 5% (LIDODERM) PATCH TD SCH (08:35)
[2023-02-21] MEDS: OMEPRAZOLE 20MG CAP PO SCH (08:35)
[2023-02-21] MEDS: LORazepam 1 MG TAB PO PRN (17:07)
[2023-02-21] MEDS: LATANOPROST 0.005% OPHTH SOLN 2.5 ML OU SCH (21:00)
[2023-02-22] MEDS: LORazepam 1 MG TAB PO PRN ×3 (07:00→23:15)
[2023-02-22] MEDS: OMEPRAZOLE 20MG CAP PO SCH (09:01)
[2023-02-22] MEDS: TAMSULOSIN 0.4 MG CAP PO SCH (09:01)
[2023-02-22] MEDS: LIDOCAINE 5% (LIDODERM) PATCH TD SCH (09:01)
[2023-02-22] MEDS: MORPHINE 10MG/0.5ML ORAL CONCENTRATE SOLUTION U/D SL PRN ×2 (16:48→20:31)
[2023-02-22] MEDS: LATANOPROST 0.005% OPHTH SOLN 2.5 ML OU SCH (20:30)
[2023-02-22] MEDS: SCOPOLAMINE 1MG TRANSDERMAL PATCH TOP PRN (20:30)
[2023-02-23] MEDS: TAMSULOSIN 0.4 MG CAP PO SCH (09:11)
[2023-02-23] MEDS: OMEPRAZOLE 20MG CAP PO SCH (09:11)
[2023-02-23] MEDS: LIDOCAINE 5% (LIDODERM) PATCH TD SCH (09:11)
[2023-02-23] MEDS: MORPHINE 10MG/0.5ML ORAL CONCENTRATE SOLUTION U/D SL PRN ×2 (09:12→15:50)
[2023-02-23] MEDS: LORazepam 1 MG TAB PO PRN (15:50)
[2023-02-23] MEDS: LATANOPROST 0.005% OPHTH SOLN 2.5 ML OU SCH (19:59)
[2023-02-24] MEDS: MORPHINE 10MG/0.5ML ORAL CONCENTRATE SOLUTION U/D SL PRN ×3 (03:53→20:58)
[2023-02-24] MEDS: LORazepam 1 MG TAB PO PRN (05:58)
[2023-02-24] MEDS: TAMSULOSIN 0.4 MG CAP PO SCH (08:39)
[2023-02-24] MEDS: OMEPRAZOLE 20MG CAP PO SCH (08:40)
[2023-02-24] MEDS: LIDOCAINE 5% (LIDODERM) PATCH TD SCH (08:40)
[2023-02-24] MEDS: LATANOPROST 0.005% OPHTH SOLN 2.5 ML OU SCH (20:01)
[2023-02-25] MEDS: OMEPRAZOLE 20MG CAP PO SCH (08:20)
[2023-02-25] MEDS: TAMSULOSIN 0.4 MG CAP PO SCH (08:20)
[2023-02-25] MEDS: LIDOCAINE 5% (LIDODERM) PATCH TD SCH (08:22)
[2023-02-25] MEDS: MORPHINE 10MG/0.5ML ORAL CONCENTRATE SOLUTION U/D SL PRN (10:10)
[2023-02-25] MEDS ORDERED: MORP1SOL5 PO (10:19)
[2023-02-25] MEDS ORDERED: HYOS125TA PO (10:19)
[2023-02-25] MEDS ORDERED: ATIV1TAB10 PO (10:19)
[2023-02-25] MEDS: LATANOPROST 0.005% OPHTH SOLN 2.5 ML OU SCH (21:00)
[2023-02-25] MEDS: SCOPOLAMINE 1MG TRANSDERMAL PATCH TOP PRN (21:46)
[2023-02-26] MEDS: TAMSULOSIN 0.4 MG CAP PO SCH (08:07)
[2023-02-26] MEDS: OMEPRAZOLE 20MG CAP PO SCH (08:07)
[2023-02-26] MEDS: LIDOCAINE 5% (LIDODERM) PATCH TD SCH (08:11)
[2023-02-26] MEDS: MORPHINE 10MG/0.5ML ORAL CONCENTRATE SOLUTION U/D SL PRN (08:11)
== END 2023-02-26 12:42 | disposition hospice, home (50) | DRG 206 ==
LOC: M ED 14:28 → M ED INP 02-16 01:59 → M PCU 02-16 04:50 → M MSPAV 02-19 16:53
PROVIDERS: ADMIT Family Medicine; ATTEND Internal Medicine
PROC: B246ZZZ Ultrasonography of Right and Left Heart (ICD-10-PCS; principal; 2023-02-18)
DX: S22.32XA Fracture of one rib, left side, initial encounter for closed fracture (principal); I12.9 Hypertensive chronic kidney disease with stage 1 through stage 4 chronic kidney disease, or unspecified chronic kidney disease; E78.5 Hyperlipidemia, unspecified; G47.30 Sleep apnea, unspecified; K21.9 Gastro-esophageal reflux disease without esophagitis; M19.90 Unspecified osteoarthritis, unspecified site; G47.419 Narcolepsy without cataplexy; N40.1 Benign prostatic hyperplasia with lower urinary tract symptoms; R33.9 Retention of urine, unspecified; M48.00 Spinal stenosis, site unspecified; Z51.5 Encounter for palliative care; Z66 Do not resuscitate; F01.50 Vascular dementia, unspecified severity, without behavioral disturbance, psychotic disturbance, mood disturbance, and anxiety; N18.30 Chronic kidney disease, stage 3 unspecified; G31.83 Neurocognitive disorder with Lewy bodies; F02.80 Dementia in other diseases classified elsewhere, unspecified severity, without behavioral disturbance, psychotic disturbance, mood disturbance, and anxiety; F41.9 Anxiety disorder, unspecified; F32.A Depression, unspecified; H40.9 Unspecified glaucoma; R29.6 Repeated falls; W19.XXXA Unspecified fall, initial encounter; Y92.9 Unspecified place or not applicable; R00.1 Bradycardia, unspecified; Y93.9 Activity, unspecified; Y99.8 Other external cause status; I44.1 Atrioventricular block, second degree; D50.9 Iron deficiency anemia, unspecified; I45.10 Unspecified right bundle-branch block; R63.4 Abnormal weight loss; D63.8 Anemia in other chronic diseases classified elsewhere; Z79.82 Long term (current) use of aspirin; Z86.73 Personal history of transient ischemic attack (TIA), and cerebral infarction without residual deficits; Z79.899 Other long term (current) drug therapy; Z87.891 Personal history of nicotine dependence; E83.42 Hypomagnesemia; Z88.2 Allergy status to sulfonamides; Z88.8 Allergy status to other drugs, medicaments and biological substances; Z94.7 Corneal transplant status; Z90.49 Acquired absence of other specified parts of digestive tract; Z98.42 Cataract extraction status, left eye; Z98.1 Arthrodesis status